=== PATIENT | female | born 1965 | race Caucasian/White ===

== ENCOUNTER 2016-12-13 09:13 | Day surgery (SDC) | payer MEDICARE, BC ==
[~2016-12-13 09:13] MED LIST: Bupivacaine 0.5% 50 ML MDV ONE; Lidocaine 1% with EPINEPHrine 1:100,000 50 ML MDV ONE
[2016-12-13] MEDS ORDERED: Lactated Ringers 1,000 ML IV SCH (09:45)
[2016-12-13] MEDS ORDERED: Propofol 200 MG/20 ML SDV ONE ×2 (11:14→11:48)
[2016-12-13] MEDS ORDERED: Midazolam 1 MG/ML 2 ML SDV ONE (11:14)
[2016-12-13] MEDS ORDERED: fentaNYL 100 MCG/2 ML SDV ONE (11:14)
[2016-12-13] MEDS ORDERED: ceFAZolin 2 GM in Sodium Chloride 0.9% 100 ML IV ONE (11:25)
[2016-12-13] MEDS ORDERED: ceFAZolin 2 GM in Premix Bag 1 BAG IV ONE (11:25)
[2016-12-13] MEDS ORDERED: Lactated Ringers 1,000 ML ONE (12:23)
[2016-12-13] MEDS ORDERED: oxyCODONE 5 MG Tab PO PRN (13:02)
--- NOTE | 2016-12-13 13:16 | CR ---
Portable chest There is a [id number]-[id number] catheter on the left. The tip descends down into the SVC.
[2016-12-13 14:22] VITALS: BP 140/70
--- NOTE | 2016-12-14 08:01 | OR ---
DATE OF PROCEDURE: 12/13/2016 PREOPERATIVE DIAGNOSIS: Metastatic malignant melanoma, needs chemotherapy. POSTOPERATIVE DIAGNOSIS: Metastatic malignant melanoma, needs chemotherapy. PROCEDURE: Left subclavian Port-A-Cath (PowerPort) placement manufactured by [employer]. ANESTHESIA: IV anesthesia with monitored anesthesia care. INDICATIONS: This 50-year-old white female has metastatic malignant melanoma. She needs good IV access for chemotherapy. Request is made for a Port-A-Cath or similar placement. I counseled her for this including risks and alternatives, and she gave her informed consent to proceed. DESCRIPTION OF PROCEDURE: After adequate IV anesthesia was obtained, the patient's anterior chest, shoulders, and neck were prepped and draped in the usual sterile fashion. Time-out was held. Lidocaine 1% with epinephrine in a 50:50 mix with 0.5% Marcaine was infiltrated about the left infraclavicular area. She was placed in Trendelenburg. The left subclavian vein was cannulated with a needle and a wire was passed through the needle into the vein. Fluoroscopically, it was noted to go down into the superior vena cava , right atrium, and inferior vena cava. A transverse infraclavicular incision was then made and a pocket was formed inferior to this incision to accept the reservoir. The reservoir which had previously been attached to the catheter and flushed with heparinized saline using a noncoring needle was then placed in the pocket and the catheter was measured to appropriate length. It was cut to this length. A dilator was then passed over the wire and the dilator was removed. The dilator with introducer were then passed over the wire, and the wire and dilator were removed leaving the introducer in the vein. The catheter was then passed through the introducer into the vein and the introducer was removed leaving the catheter in the vein. All looked well. The reservoir was then anchored with 3-0 silk suture in the previously formed pocket. The incision was irrigated with saline and dried. The subcutaneous tissue was closed in a running stitch of 3-0 Vicryl, 4-0 Vicryl using a subcuticular stitch was placed to approximate the skin. The catheter easily was aspirated obtaining blood and was flushed with heparinized saline. Steri-Strips and a sterile dressing were applied. The patient tolerated the procedure well. Chest x-ray is pending at this time. Gerard Montano MD /[id number] MTDD
== END 2016-12-13 14:15 | disposition home or self-care (01) ==
LOC: JP.SDS 09:13
PROVIDERS: ATTEND Surgery
DX: Z51.11 Encounter for antineoplastic chemotherapy (principal); E11.9 Type 2 diabetes mellitus without complications; E66.9 Obesity, unspecified
CPT/HCPCS: 36561; A9270; C1776; C1788; J0690; J1642; J2250; J2704; J3010; J7120

== ENCOUNTER → 2018-01-30 | Day surgery (SDC) | payer MEDICARE, BC ==
[~2018-01-30] MED LIST changes: +Acetaminophen/HYDROcodone 325-5 MG Tab PO PRN; +Dextrose 5%-Lactated Ringers 1,000 ML IV SCH; +Midazolam 1 MG/ML 2 ML SDV ONE; +Propofol 200 MG/20 ML SDV ONE; +ceFAZolin 2 GM in Premix Bag 1 BAG IV ONE; +fentaNYL 100 MCG/2 ML SDV ONE
[2018-01-30 10:44] VITALS: BP 144/87
--- NOTE | 2018-01-30 11:20 | CR ---
CHEST: Portable CLINICAL HISTORY:Port placement COMPARISON:12/13/2016 FINDINGS: There is a right the subclavian [id number]-[id number] catheter. The tip appears to be in the lower superior vena cava there is no pneumothorax. IMPRESSION: Limited study Right subclavian Ibzqvw-i-Uzmv catheter placement
--- NOTE | 2018-01-31 11:11 | OR ---
DATE OF PROCEDURE: 01/30/2018 PREOPERATIVE DIAGNOSES: Metastatic malignant melanoma, current PowerPort nonfunctional. POSTOPERATIVE DIAGNOSES: Metastatic malignant melanoma, current PowerPort nonfunctional. PROCEDURE: Removal of the existing left subclavian PowerPort and placement of a new right subclavian PowerPort. ANESTHESIA: IV anesthesia with monitored anesthesia care. INDICATION: This 52-year-old white female is here to replace her PowerPort. She has metastatic malignant melanoma. Her existing PowerPort is nonfunctional. It is in the left subclavian area. I counseled her for removal of this existing PowerPort and placement of a new one. She gave her informed consent to proceed. DESCRIPTION OF PROCEDURE: After adequate IV anesthesia was obtained, the patient's upper chest, shoulders, and neck were prepped and draped in the usual sterile fashion. Time-out was held. Lidocaine 1% with epinephrine in a 50:50 mix with 0.5% Marcaine was infiltrated about the left infraclavicular area. A transverse incision was made through her existing left infraclavicular scar. This was dissected free down to the existing PowerPort. This was removed. She was placed in steep Trendelenburg. The left subclavian vein was attempted to be cannulated. We could not do this because of lot of scar tissue present. We then abandoned this side and went to the right side. Lidocaine 1% with epinephrine in a 50:50 mix with 0.5% Marcaine was infiltrated about this area. We then cannulated the left subclavian vein and passed a wire through the needle and into the vein, and fluoroscopically noted to go down into the superior vena cava and right ventricle. There was some ectopy, so we pulled the wire back. A transverse incision was then made at this site. We placed a dilator over the wire, and the dilator was removed. The dilator with introducer was then passed over the wire. The wire and dilator were removed leaving the introducer in the vein. The previously-measured PowerPort device, which had also been filled with heparinized saline using a noncoring needle, was then obtained, it was passed through the introducer into the vein and the introducer was removed. The catheter appeared to be nicely placed in the vein. The reservoir of the device was then anchored to the underlying fascia with 2-0 silk suture. We accessed the device, it easily aspirated, and then we flushed with heparinized saline. We used a noncoring needle. Both incisions were irrigated and dried. The subcutaneous tissue of both incisions was approximated with 3-0 Vicryl suture and 4-0 Vicryl using a subcuticular stitch was placed to approximate the skin. Steri-Strips and a sterile dressing were applied. The patient tolerated the procedure well and was brought to the recovery room in a good condition. Chest x-ray is being taken. Gerard Montano MD /[id number]
== END ==
LOC: JP.SDS 07:00
PROVIDERS: ATTEND Surgery
DX: T82.598A Other mechanical complication of other cardiac and vascular devices and implants, initial encounter (principal); C43.9 Malignant melanoma of skin, unspecified; C79.9 Secondary malignant neoplasm of unspecified site; E66.01 Morbid (severe) obesity due to excess calories
CPT/HCPCS: 36561; 36590; A9270; C1788; J0690; J1642; J2250; J2704; J3010; J7042

== ENCOUNTER 2021-05-09 15:24 | Inpatient (IN) | payer MEDICARE ==
--- NOTE | 2021-05-09 16:38 | EDM.PDOC ---
ED HPI GENERAL MEDICAL PROBLEM - General Chief Complaint: Lower Extremity Injury/Pain Stated Complaint: INFECTION IN LEG Time Seen by Provider: 05/09/21 16:25 Source of Information: Reports: Patient, RN History Limitations: Reports: No Limitations - History of Present Illness INITIAL COMMENTS - FREE TEXT/NARRATIVE: Patient woke up with a very large "cellulitis". Patient states she has had this multiple times before and has been admitted multiple times for cellulitis. Redness starts in hip goes all the way to ankle and foot on right side. Redness is not seen on lateral aspect from mid thigh to mid calf otherwise entire leg groin and hip are all red. Patient is in pain. Area is warm, no open areas.according to patient she has had lymphedema surgery in the past. No s pecific site is noted for the start of the cellulitis or skin reaction. Onset: Today, Sudden Duration: Getting Worse Location: Reports: Lower Extremity, Right (Hip to ankle) Quality: Reports: Burning Severity: Severe Improves with: Reports: None Worsens with: Reports: None Context: Reports: Other Associated Symptoms: Reports: No Other Symptoms Treatments CHART READER: Reports: Other (see below) (None) right leg Pain Score (Numeric/FACES): 8 - Related Data Allergies Allergy/AdvReac Type Severity Reaction Status Date / Time No Known Allergies Allergy Verified 05/09/21 15:40 Home Meds: Home Meds Levothyroxine Sodium 200 mcg PO DAILY 06/15/14 [History] Pembrolizumab [Keytruda] 1 injection IV ASDIRECTED 12/09/16 [History] Prochlorperazine Maleate [Compazine] 10 mg PO Q6H PRN 12/09/16 [History] Triamcinolone Acetonide [Kenalog 0.1% Crm] 1 applic TOP ASDIRECTED 01/09/18 [History] QUEtiapine Fumarate [Seroquel] 1 - 2 mg PO BEDTIME 12/11/20 [History] hydrOXYzine HCL [hydrOXYzine] 25 mg PO DAILY 12/11/20 [History] Insulin Lispro [Humalog] See Protocol SUBCUT QIDACANDBED 30 Days #1 pen 12/16/20 [Rx] Insulin NPH Human Isophane [Humulin N] 33 unit SQ DAILY 30 Days #1 vial 12/16/20 [Rx] Insulin NPH Human Isophane [Humulin N] 35 unit SQ BEDTIME 30 Days #1 vial 12/16/20 [Rx] Albuterol [Proventil Neb Soln] 3 ml INH Q4H PRN 12/24/20 [History] Citalopram [Citalopram HBr] 20 mg PO DAILY 05/09/21 [History] Zolpidem Tartrate 10 mg PO BEDTIME 05/09/21 [History] buPROPion [buPROPion XL] 150 mg PO DAILY 05/09/21 [History] Past Medical History HEENT History: Reports: Impaired Vision Other HEENT History: wears reading glasses Cardiovascular History: Reports: High Cholesterol Respiratory History: Reports: Pneumonia, Recurrent, Other (See Below) Other Respiratory History: sarcoidosis in 2002. 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: Musculoskeletal History: Reports: Arthritis Neurological History: Reports: Migraines Psychiatric History: Reports: Anxiety, Depression Other Psychiatric History: claustrophobia Endocrine/Metabolic History: Reports: Diabetes, Type II, Hypothyroidism, Obesity/BMI 30+ Other Endocrine/Metabolic History: thyroid cancer Hematologic History: Reports: Blood Transfusion(s) Oncologic (Cancer) History: Reports: Malignant Melanoma, Thyroid, Other (See Below) Other Oncologic History: skin cancer-melanoma Dermatologic History: Reports: Cellulitis, Melanoma, Other (See Below) Other Dermatologic History: right lymph glands removed, lymphedema right leg - Infectious Disease History Infectious Disease History: Reports: Chicken Pox - Past Surgical History HEENT Surgical History: Reports: Tonsillectomy, Other (See Below) Other HEENT Surgeries/Procedures: "nose surgery i dont remember" Cardiovascular Surgical History: Reports: None Respiratory Surgical History: Reports: None GI Surgical History: Reports: Colonoscopy Female Surgical History: Reports: Breast Biopsy, Section, Tubal Ligation Endocrine Surgical History: Reports: None Neurological Surgical History: Reports: None Musculoskeletal Surgical History: Reports: None Oncologic Surgical History: Reports: Biopsy of Breast Dermatological Surgical History: Reports: Skin Biopsy Social & Family History - Family History Family Medical History: No Pertinent Family History - Tobacco Use Tobacco Use Status *Q: Never Tobacco User - Caffeine Use Caffeine Use: Reports: Coffee, Soda - Recreational Drug Use Recreational Drug Use: No - Living Situation & Occupation Living situation: Reports: Single (lives with Son Juan and his family. has two adult Sons, 6 Grandchildren and multi dogs and cats) Occupation: Disabled Review of Systems - Review of Systems Review Of Systems: See Below Constitutional: Reports: No Symptoms Eyes: Reports: Drainage (Yellow mattery drainage right eye) Ears: Reports: No Symptoms Nose: Reports: No Symptoms Mouth/Throat: Reports: No Symptoms Respiratory: Reports: No Symptoms Cardiovascular: Reports: No Symptoms GI/Abdominal: Reports: No Symptoms Genitourinary: Reports: No Symptoms Musculoskeletal: Reports: Leg Pain (Right leg) Skin: Reports: Erythema Neurological: Reports: No Symptoms Psychiatric: Reports: No Symptoms ED EXAM, GENERAL - Physical Exam Exam: See Below Exam Limited By: No Limitations General Appearance: Alert, Moderate Distress Respiratory/Chest: No Respiratory Distress, Lungs Clear, Normal Breath Sounds Cardiovascular: Normal Peripheral Pulses, Regular Rate, Rhythm Extremities: Normal Range of Motion, Pedal Edema, Leg Pain, Increased Warmth, Redness. No: No Pedal Edema Neurological: Alert, Oriented, CN II-XII Intact Psychiatric: Normal Affect Skin Exam: Warm, Erythema, Increased Warmth, Rash (Cellulitis versus allergic reaction right hip to ankle including groin and part of buttock) Course - Vital Signs Last Recorded V/S: Last Vital Signs Temp 36.1 C 05/10/21 07:00 Pulse 95 05/10/21 07:00 Resp 18 05/10/21 07:00 BP 104/35 L 05/10/21 07:00 Pulse Ox 90 L 05/10/21 07:00 - Orders/Labs/Meds Orders: Active Orders 24 hr Category Date Time Status Patient Status [ADT] Routine ADT 05/09/21 19:11 Active Ambulate [RC] QID Care 05/09/21 19:11 Active Communication Order [RC] STAT Care 05/09/21 19:11 Active Diabetes Education [RC] Click to Edit Care 05/09/21 19:11 Active Height and Weight [RC] 0500 Care 05/09/21 19:11 Active Intake and Output [RC] QSHIFT Care 05/09/21 19:11 Active Notify Provider Vital Signs [RC] ASDIRECTED Care 05/09/21 19:11 Active Notify Provider [RC] PRN Care 05/09/21 19:11 Active Oxygen Therapy [RC] PRN Care 05/09/21 19:11 Active Peripheral IV Care [RC] Q12H Care 05/09/21 19:11 Active RT Aerosol Therapy [RC] ASDIRECTED Care 05/09/21 19:11 Active Up With Assistance [RC] ASDIRECTED Care 05/09/21 19:11 Active Up to Chair [RC] QID Care 05/09/21 19:11 Active VTE/DVT Education [RC] Per Unit Routine Care 05/09/21 19:11 Active Vital Signs [RC] Q4H Care 05/09/21 19:11 Active Consistent Carbohydrate Diet [DIET] Diet 05/09/21 Dinner Active CULTURE BLOOD [BC] Urgent Lab 05/09/21 16:45 Received CULTURE BLOOD [BC] Urgent Lab 05/09/21 16:50 Received GLUCOSE POC LAB TO COLLECT JPM [POC] QIDACANDBED Lab 05/10/21 11:30 Ordered GLUCOSE POC LAB TO COLLECT JPM [POC] QIDACANDBED Lab 05/10/21 16:30 Ordered GLUCOSE POC LAB TO COLLECT JPM [POC] QIDACANDBED Lab 05/10/21 21:00 Ordered GLUCOSE POC LAB TO COLLECT JPM [POC] QIDACANDBED Lab 05/11/21 07:30 Ordered GLUCOSE POC LAB TO COLLECT JPM [POC] QIDACANDBED Lab 05/11/21 11:30 Ordered GLUCOSE POC LAB TO COLLECT JPM [POC] QIDACANDBED Lab 05/11/21 16:30 Ordered GLUCOSE POC LAB TO COLLECT JPM [POC] QIDACANDBED Lab 05/11/21 21:00 Ordered GLUCOSE POC LAB TO COLLECT JPM [POC] QIDACANDBED Lab 05/12/21 07:30 Ordered GLUCOSE POC LAB TO COLLECT JPM [POC] QIDACANDBED Lab 05/12/21 11:30 Ordered GLUCOSE POC LAB TO COLLECT JPM [POC] QIDACANDBED Lab 05/12/21 16:30 Ordered GLUCOSE POC LAB TO COLLECT JPM [POC] QIDACANDBED Lab 05/12/21 21:00 Ordered GLUCOSE POC LAB TO COLLECT JPM [POC] QIDACANDBED Lab 05/13/21 07:30 Ordered GLUCOSE POC LAB TO COLLECT JPM [POC] QIDACANDBED Lab 05/13/21 11:30 Ordered GLUCOSE POC LAB TO COLLECT JPM [POC] QIDACANDBED Lab 05/13/21 16:30 Ordered GLUCOSE POC LAB TO COLLECT JPM [POC] QIDACANDBED Lab 05/13/21 21:00 Ordered GLUCOSE POC LAB TO COLLECT JPM [POC] QIDACANDBED Lab 05/14/21 07:30 Ordered GLUCOSE POC LAB TO COLLECT JPM [POC] QIDACANDBED Lab 05/14/21 11:30 Ordered GLUCOSE POC LAB TO COLLECT JPM [POC] QIDACANDBED Lab 05/14/21 16:30 Ordered GLUCOSE POC LAB TO COLLECT JPM [POC] QIDACANDBED Lab 05/14/21 21:00 Ordered GLUCOSE POC LAB TO COLLECT JPM [POC] QIDACANDBED Lab 05/15/21 07:30 Ordered GLUCOSE POC LAB TO COLLECT JPM [POC] QIDACANDBED Lab 05/15/21 11:30 Ordered GLUCOSE POC LAB TO COLLECT JPM [POC] QIDACANDBED Lab 05/15/21 16:30 Ordered Acetaminophen [TylenoL] Med 05/09/21 19:11 Active 650 mg PO Q4H PRN Dextrose 50% in Water Med 05/09/21 19:11 Active 50 ml IV ONETIME PRN Dextrose [Glutose 15] Med 05/09/21 19:11 Active 15 gm PO ONETIME PRN Enoxaparin [Lovenox] Med 05/09/21 21:00 Active 40 mg SUBCUT BEDTIME Insulin Lispro [HumaLOG] Med 05/09/21 20:00 Active See Protocol SUBCUT QIDACANDBED Insulin NPH Human Isophane [HumuLIN N] Med 05/10/21 09:00 Active 33 unit SQ DAILY Insulin NPH Human Isophane [HumuLIN N] Med 05/09/21 21:00 Active 35 unit SQ BEDTIME Levothyroxine [Synthroid] Med 05/10/21 07:30 Active 200 mcg PO DAILY@0730 Ondansetron [Zofran] Med 05/09/21 19:11 Active 4 mg IV Q4H PRN QUEtiapine [SEROqueL] Med 05/09/21 21:00 Active 25 - 50 mg PO BEDTIME Sodium Chloride 0.9% [Saline Flush] Med 05/09/21 19:11 Active 10 ml FLUSH ASDIRECTED PRN hydrOXYzine HCL [Atarax] Med 05/10/21 09:00 Active 25 mg PO DAILY polyethylene glycoL 3350 [MiraLAX] Med 05/09/21 19:11 Active 17 gm PO DAILY PRN Blood Culture x2 Reflex Set [OM.PC] Urgent Oth 05/09/21 16:59 Ordered Peripheral IV Insertion Adult [OM.PC] Routine Oth 05/09/21 19:11 Ordered Resuscitation Status Routine Resus Stat 05/09/21 18:24 Ordered Medication Orders Acetaminophen (Acetaminophen 325 Mg Tab) 650 mg PO Q4H PRN PRN Reason: Pain (Mild 1-3)/fever Last Admin: 05/09/21 20:56 Dose: 650 mg Documented by: DOMINICK Albuterol (Albuterol 0.083% 2.5 Mg/3 Ml Neb Soln) 2.5 mg INH Q4H PRN PRN Reason: Shortness of Breath Last Admin: 05/10/21 09:23 Dose: 2.5 mg Documented by: VERONICA Dextrose (Glucose Gel 15 Gm In 37.5 Gm Tube) 15 gm PO ONETIME PRN PRN Reason: Hypoglycemia Dextrose/Water (50% Dextrose In Water 50 Ml Syringe) 50 ml IV ONETIME PRN PRN Reason: Hypoglycemia Enoxaparin Sodium (Enoxaparin 40 Mg/0.4 Ml Syringe) 40 mg SUBCUT BEDTIME FERNANDO Last Admin: 05/09/21 20:57 Dose: 40 mg Documented by: DOMINICK Hydroxyzine HCl (Hydroxyzine Hcl 25 Mg Tab) 25 mg PO DAILY FERNANDO Last Admin: 05/10/21 09:00 Dose: 25 mg Documented by: VERONICA Piperacillin/Tazobactam/ (Dextrose 3.375 gm/ Premix) 50 mls @ 100 mls/hr IV Q6H FERNANDO Vancomycin HCl 2 gm/ Sodium (Chloride) 500 mls @ 250 mls/hr IV Q12H [facility] Last Admin: 05/10/21 08:42 Dose: 250 mls/hr Documented by: VERONICA Insulin Human Lispro (Insulin Lispro 100 Unit/Ml 3 Ml Kwikpen) 0 unit SUBCUT QIDACANDBED [facility]; Protocol Last Admin: 05/10/21 09:18 Dose: 2 units Documented by: VERONICA Cosigned by: SHEA Admin: 05/09/21 21:24 Dose: 4 units Documented by: DOMINICK Cosigned by: TANNER Insulin Human NPH (Insulin Isophane Nph, Human 100 Units/Ml 3 Ml Vial) 33 unit SQ DAILY [facility] Last Admin: 05/10/21 09:18 Dose: 33 unit Documented by: VERONICA Cosigned by: [email or web address] Insulin Human NPH (Insulin Isophane Nph, Human 100 Units/Ml 3 Ml Vial) 35 unit SQ BEDTIME [facility] Last Admin: 05/09/21 21:23 Dose: 35 unit Documented by: DOMINICK Cosigned by: TANNER Levothyroxine Sodium (Levothyroxine 100 Mcg Tab) 200 mcg PO DAILY@0730 [facility] Last Admin: 05/10/21 09:00 Dose: 200 mcg Documented by: VERONICA Ondansetron HCl (Ondansetron 4 Mg/2 Ml Sdv) 4 mg IV Q4H PRN PRN Reason: Nausea/Vomiting Oxycodone HCl (Oxycodone 5 Mg Tab) 5 mg PO Q4H PRN PRN Reason: Pain Last Admin: 05/10/21 10:17 Dose: 5 mg Documented by: Admin: 05/09/21 20:56 Dose: 5 mg Documented by: DOMINICK Polyethylene Glycol (Polyethylene Glycol 3350 Powder 17 Gm Packet) 17 gm PO DAILY PRN PRN Reason: Constipation Potassium Chloride (Potassium Chloride 20 Meq Tab.Er) 40 meq PO ONETIME ONE Stop: 05/10/21 17:01 Quetiapine Fumarate (Quetiapine 25 Mg Tab) 25 - 50 mg PO BEDTIME [facility] Last Admin: 05/09/21 20:56 Dose: 50 mg Documented by: DOMINICK Sodium Chloride (Sodium Chloride 0.9% 10 Ml Syringe) 10 ml FLUSH ASDIRECTED PRN PRN Reason: Keep Vein Open Zolpidem Tartrate (Zolpidem 5 Mg Tab) 10 mg PO BEDTIME [facility] Last Admin: 05/09/21 20:56 Dose: 10 mg Documented by: DOMINICK Labs: Laboratory Tests 05/09/21 05/09/21 05/09/21 Range/Units 16:45 16:45 16:45 WBC 17.8 H (4.5-11.0) K/uL RBC 5.06 (3.30-5.50) M/uL Hgb 12.5 (12.0-15.0) g/dL Hct 40.5 (36.0-48.0) % MCV 80 (80-98) fL MCH 25 L (27-31) pg MCHC 31 L (32-36) % Plt Count 142 L (150-400) K/uL Neut % (Auto) 88.8 H (36-66) % Lymph % (Auto) 5.7 L (24-44) % Boyle % (Auto) 5.1 (2-6) % Eos % (Auto) 0.2 L (2-4) % Baso % (Auto) 0.2 (0-1) % Sodium 134 L (140-148) mmol/L Potassium 4.4 (3.6-5.2) mmol/L Chloride 98 L (100-108) mmol/L Carbon Dioxide 32 (21-32) mmol/L Anion Gap 8.4 (5.0-14.0) mmol/L BUN 24 H D (7-18) mg/dL Creatinine 1.0 (0.6-1.0) mg/dL Est Cr Clr Drug Dosing 58.81 mL/min Estimated GFR (MDRD) 57 L (>60) Glucose 170 H (74-106) mg/dL Lactic Acid 1.5 (0.4-2.0) mmol/L Calcium 9.1 (8.5-10.1) mg/dL Elevated white count at 17.8. Blood cultures drawn. Meds: Medications Generic Name Dose Route Start Last Admin Trade Name Freq PRN Reason Stop Dose Admin Acetaminophen 650 mg 05/09/21 19:11 05/09/21 20:56 Acetaminophen 325 Mg Tab PO 650 mg Q4H PRN Administration Pain (Mild 1-3)/fever Albuterol 2.5 mg 05/09/21 20:43 05/10/21 09:23 Albuterol 0.083% 2.5 Mg/3 Ml Neb Soln INH 2.5 mg Q4H PRN Administration Shortness of Breath Dextrose 15 gm 05/09/21 19:11 Glucose Gel 15 Gm In 37.5 Gm Tube PO ONETIME PRN Hypoglycemia Dextrose/Water 50 ml 05/09/21 19:11 50% Dextrose In Water 50 Ml Syringe IV ONETIME PRN Hypoglycemia Enoxaparin Sodium 40 mg 05/09/21 21:00 05/09/21 20:57 Enoxaparin 40 Mg/0.4 Ml Syringe SUBCUT 40 mg BEDTIME FERNANDO Administration Hydroxyzine HCl 25 mg 05/10/21 09:00 05/10/21 09:00 Hydroxyzine Hcl 25 Mg Tab PO 25 mg DAILY FERNANDO Administration Piperacillin/Tazobactam/ 50 mls @ 100 mls/hr 05/10/21 12:00 Dextrose 3.375 gm/ Premix IV Q6H FERNANDO Vancomycin HCl 2 gm/ Sodium 500 mls @ 250 mls/hr 05/10/21 08:00 05/10/21 08:42 Chloride IV 250 mls/hr Q12H FERNANDO Administration Insulin Human Lispro 0 unit 05/09/21 20:00 05/10/21 09:18 Insulin Lispro 100 Unit/Ml 3 Ml Kwikpen SUBCUT 2 units QIDACANDBED FERNANDO Administration Protocol Insulin Human NPH 33 unit 05/10/21 09:00 05/10/21 09:18 Insulin Isophane Nph, Human 100 Units/Ml 3 Ml Vial SQ 33 unit DAILY FERNANDO Administration Insulin Human NPH 35 unit 05/09/21 21:00 05/09/21 21:23 Insulin Isophane Nph, Human 100 Units/Ml 3 Ml Vial SQ 35 unit BEDTIME FERNANDO Administration Levothyroxine Sodium 200 mcg 05/10/21 07:30 05/10/21 09:00 Levothyroxine 100 Mcg Tab PO 200 mcg DAILY@0730 FERNANDO Administration Ondansetron HCl 4 mg 05/09/21 19:11 Ondansetron 4 Mg/2 Ml Sdv IV Q4H PRN Nausea/Vomiting Oxycodone HCl 5 mg 05/09/21 20:09 05/10/21 10:17 Oxycodone 5 Mg Tab PO 5 mg Q4H PRN Administration Pain Polyethylene Glycol 17 gm 05/09/21 19:11 Polyethylene Glycol 3350 Powder 17 Gm Packet PO DAILY PRN Constipation Potassium Chloride 40 meq 05/10/21 17:00 Potassium Chloride 20 Meq Tab.Er PO 05/10/21 17:01 ONETIME ONE Quetiapine Fumarate 25 - 50 mg 05/09/21 21:00 05/09/21 20:56 Quetiapine 25 Mg Tab PO 50 mg BEDTIME FERNANDO Administration Sodium Chloride 10 ml 05/09/21 19:11 Sodium Chloride 0.9% 10 Ml Syringe FLUSH ASDIRECTED PRN Keep Vein Open Zolpidem Tartrate 10 mg 05/09/21 21:00 05/09/21 20:56 Zolpidem 5 Mg Tab PO 10 mg BEDTIME FERNANDO Administration Discontinued Medications Generic Name Dose Route Start Last Admin Trade Name Freq PRN Reason Stop Dose Admin Albuterol 2.5 mg 05/09/21 19:11 05/09/21 20:15 Albuterol 0.083% 2.5 Mg/3 Ml Neb Soln INH 2.5 mg Q4H FERNANDO Administration Piperacillin Sod/Tazobactam 50 mls @ 100 mls/hr 05/09/21 18:30 05/10/21 05:54 Sod 3.375 gm/ Sodium Chloride IV 100 mls/hr Q6H FERNANDO Administration Vancomycin HCl 2 gm/ Sodium 500 mls @ 250 mls/hr 05/09/21 19:00 05/09/21 19:34 Chloride IV 250 mls/hr Q12H FERNANDO Administration Sodium Chloride 1,000 mls @ 125 mls/hr 05/09/21 19:11 05/10/21 06:38 Normal Saline IV 125 mls/hr ASDIRECTED FERNANDO Administration Potassium Chloride 40 meq 05/10/21 08:30 05/10/21 09:54 Potassium Chloride 20 Meq Tab.Er PO 05/10/21 08:31 40 meq ONETIME ONE Administration Sodium Chloride 10 ml 05/09/21 17:44 Sodium Chloride 0.9% 10 Ml Syringe FLUSH ASDIRECTED PRN Keep Vein Open Vancomycin HCl 1 gm 05/09/21 19:00 Vancomycin 1 Gm Sdv IV 05/10/21 08:35 .PHARMACY TO DOSE FERNANDO - Re-Assessments/Exams Free Text/Narrative Re-Assessment/Exam: 05/09/21 17:47 Reviewed labs with patient. Blood cultures were drawn. Consulted internal medicine for admit for right leg cellulitis. Patient has strong history of sepsis and cellulitis. Departure - Departure Time of Disposition: 18:56 Disposition: Admitted As Inpatient 65 Condition: Fair Clinical Impression: Cellulitis - Discharge Information Sepsis Event Note (ED) - Evaluation Sepsis Screening Result: No Definite Risk - My Orders Last 24 Hours: My Active Orders 05/09/21 16:45 CULTURE BLOOD [BC] Urgent 05/09/21 16:50 CULTURE BLOOD [BC] Urgent 05/09/21 16:59 Blood Culture x2 Reflex Set [OM.PC] Urgent - Assessment/Plan Last 24 Hours: My Active Orders 05/09/21 16:45 CULTURE BLOOD [BC] Urgent 05/09/21 16:50 CULTURE BLOOD [BC] Urgent 05/09/21 16:59 Blood Culture x2 Reflex Set [OM.PC] Urgent
[2021-05-09] MEDS ORDERED: Sodium Chloride 0.9% 10 ML Syringe FLUSH PRN ×2 (17:44→19:11)
--- NOTE | 2021-05-09 18:28 | PCM.HP.2 ---
H&P History of Present Illness - General Date of Service: 05/09/21 Admit Problem/Dx: Admission Diagnosis/Problem Admission Diagnosis/Problem Cellulitis Source of Information: Patient, Old Records, Provider, RN Notes Reviewed History Limitations: Reports: No Limitations - History of Present Illness Initial Comments - Free Text/Narative: Ms. Carrington is a 55-year-old woman who was admitted through the emergency department with weakness and pain in her right leg secondary to cellulitis. She has a known history of lymphedema of the right leg and has had recurrent episodes of cellulitis involving the right leg. The most recent of which was approximately 1 month ago. She is also actively receiving chemotherapy for melanoma. She does have underlying diabetes. White blood cell count is elevated, she denies significant temperature elevation. She noted abrupt onset of erythema of almost her entire right leg this morning. Skin is very tender to palpation, there are no open areas. right leg Pain Score (Numeric/FACES): 8 - Related Data Allergies/Adverse Reactions: Allergies Allergy/AdvReac Type Severity Reaction Status Date / Time No Known Allergies Allergy Verified 05/09/21 15:40 Home Medications: Home Meds Levothyroxine Sodium 200 mcg PO DAILY 06/15/14 [History] Pembrolizumab [Keytruda] 1 injection IV ASDIRECTED 12/09/16 [History] Prochlorperazine Maleate [Compazine] 10 mg PO Q6H PRN 12/09/16 [History] Triamcinolone Acetonide [Kenalog 0.1% Crm] 1 applic TOP ASDIRECTED 01/09/18 [History] QUEtiapine Fumarate [Seroquel] 1 - 2 mg PO BEDTIME 12/11/20 [History] hydrOXYzine HCL [hydrOXYzine] 25 mg PO DAILY 12/11/20 [History] Insulin Lispro [Humalog] See Protocol SUBCUT QIDACANDBED 30 Days #1 pen 12/16/20 [Rx] Insulin NPH Human Isophane [Humulin N] 33 unit SQ DAILY 30 Days #1 vial 12/16/20 [Rx] Insulin NPH Human Isophane [Humulin N] 35 unit SQ BEDTIME 30 Days #1 vial 12/16/20 [Rx] Albuterol [Proventil Neb Soln] 3 ml INH Q4H 12/24/20 [History] Past Medical History HEENT History: Reports: Impaired Vision Other HEENT History: wears reading glasses Cardiovascular History: Reports: High Cholesterol Respiratory History: Reports: Pneumonia, Recurrent, Other (See Below) Other Respiratory History: sarcoidosis in 2002. 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: Musculoskeletal History: Reports: Arthritis Neurological History: Reports: Migraines Psychiatric History: Reports: Anxiety, Depression Other Psychiatric History: claustrophobia Endocrine/Metabolic History: Reports: Diabetes, Type II, Hypothyroidism, Obesit y/BMI 30+ Other Endocrine/Metabolic History: thyroid cancer Hematologic History: Reports: Blood Transfusion(s) Oncologic (Cancer) History: Reports: Malignant Melanoma, Thyroid, Other (See Below) Other Oncologic History: skin cancer-melanoma Dermatologic History: Reports: Cellulitis, Melanoma, Other (See Below) Other Dermatologic History: right lymph glands removed, lymphedema right leg - Infectious Disease History Infectious Disease History: Reports: Chicken Pox - Past Surgical History HEENT Surgical History: Reports: Tonsillectomy, Other (See Below) Other HEENT Surgeries/Procedures: "nose surgery i dont remember" Cardiovascular Surgical History: Reports: None Respiratory Surgical History: Reports: None GI Surgical History: Reports: Colonoscopy Female Surgical History: Reports: Breast Biopsy, Section, Tubal Ligation Endocrine Surgical History: Reports: None Neurological Surgical History: Reports: None Musculoskeletal Surgical History: Reports: None Oncologic Surgical History: Reports: Biopsy of Breast Dermatological Surgical History: Reports: Skin Biopsy Social & Family History - Family History Family Medical History: No Pertinent Family History - Tobacco Use Tobacco Use Status *Q: Never Tobacco User - Caffeine Use Caffeine Use: Reports: Coffee, Soda - Recreational Drug Use Recreational Drug Use: No - Living Situation & Occupation Living situation: Reports: Single (lives with Son Juan and his family. has two adult Sons, 6 Grandchildren and multi dogs and cats) Occupation: Disabled H&P Review of Systems - Review of Systems: Review Of Systems: See Below General: Reports: Malaise, Weakness, Fatigue. Denies: Fever, Chills HEENT: Reports: No Symptoms Pulmonary: Reports: No Symptoms Cardiovascular: Reports: No Symptoms Gastrointestinal: Reports: No Symptoms Genitourinary: Reports: No Symptoms Musculoskeletal: Reports: No Symptoms Skin: Reports: Other (Erythema and pain involving the right leg) Psychiatric: Reports: No Symptoms Neurological: Reports: No Symptoms Hematologic/Lymphatic: Reports: No Symptoms Immunologic: Reports: No Symptoms Exam - Exam Exam: See Below - Vital Signs Vital Signs: Last Vital Signs Temp 97.8 F 05/09/21 15:48 Pulse 96 05/09/21 18:12 Resp 20 05/09/21 15:48 BP 143/64 H 05/09/21 18:12 Pulse Ox 93 L 05/09/21 15:48 Weight: 310 lb - Exam Quality Assessment: DVT Prophylaxis General: Alert, Oriented, Cooperative, Mild Distress HEENT: Conjunctiva Clear, Hearing Intact, Mucosa Moist & Venturia, Normal Nasal Septum, Posterior Pharynx Clear, Pupils Equal Neck: Supple, Trachea Midline, +2 Carotid Pulse wo Bruit Lungs: Clear to Auscultation, Normal Respiratory Effort Cardiovascular: Regular Rate, Regular Rhythm, Normal S1, Normal S2 GI/Abdominal Exam: Soft, Non-Tender, No Organomegaly, No Distention Back Exam: Normal Inspection, Full Range of Motion Extremities: Pedal Edema, Increased Warmth, Redness Skin: Other (Erythema with increased warmth and hypersensitivity, most of the right leg) Neurological: Cranial Nerves Intact, Strength Equal Bilateral, Normal Speech, Normal Tone, Sensation Intact. No: Focal Deficit Neuro Extensive - Mental Status: Alert, Oriented x3, Normal Mood/Affect, Normal Cognition, Memory Intact - Patient Data Lab Results Last 24 hrs: Laboratory Results - last 24 hr 05/09/21 05/09/21 Range/Units 16:45 16:45 WBC 17.8 H (4.5-11.0) K/uL RBC 5.06 (3.30-5.50) M/uL Hgb 12.5 (12.0-15.0) g/dL Hct 40.5 (36.0-48.0) % MCV 80 (80-98) fL MCH 25 L (27-31) pg MCHC 31 L (32-36) % Plt Count 142 L (150-400) K/uL Neut % (Auto) 88.8 H (36-66) % Lymph % (Auto) 5.7 L (24-44) % [place] % (Auto) 5.1 (2-6) % Eos % (Auto) 0.2 L (2-4) % Baso % (Auto) 0.2 (0-1) % Sodium 134 L (140-148) mmol/L Potassium 4.4 (3.6-5.2) mmol/L Chloride 98 L (100-108) mmol/L Carbon Dioxide 32 (21-32) mmol/L Anion Gap 8.4 (5.0-14.0) mmol/L BUN 24 H D (7-18) mg/dL Creatinine 1.0 (0.6-1.0) mg/dL Est Cr Clr Drug Dosing 58.81 mL/min Estimated GFR (MDRD) 57 L (>60) Glucose 170 H (74-106) mg/dL Calcium 9.1 (8.5-10.1) mg/dL Result Diagrams: 05/09/21 16:45 05/09/21 16:45 Sepsis Event Note - Evaluation Sepsis Screening Result: No Definite Risk - Focused Exam Vital Signs: Vital Signs Temp Pulse Resp BP Pulse Ox 05/09/21 18:12 96 143/64 H 05/09/21 17:11 96 123/59 L 05/09/21 15:48 97.8 F 111 H 20 141/62 H 93 L *Q Meaningful Use (ADM) - VTE Risk Assess *Q Each Risk Factor Represents 1 Point: Age 41 - 59 years, Swollen Legs, Current, Obesity ( BMI > 25 kg/m2), Sepsis Total Score 1 Point Risk Factors: 4 Each Risk Factor Represents 2 Points: Malignancy (present or previous) Total Score 2 Point Risk Factors: 2 Each Risk Factor Represents 3 Points: None Total Score 3 Point Risk Factors: 0 Each Risk Factor Represents 5 Points: None Total Score 5 Point Risk Factors: 0 Venous Thromboembolism Risk Factor Score *Q: 6 Problem List Initiated/Reviewed/Updated: Yes Orders Last 24hrs: Active Orders 24 hr Category Date Time Status Patient Status Manage Transfer [TRANSFER] Routine ADT 05/09/21 18:21 Active Peripheral IV Care [RC] . DIRECTED Care 05/09/21 17:44 Active CULTURE BLOOD [BC] Urgent Lab 05/09/21 16:45 Received CULTURE BLOOD [BC] Urgent Lab 05/09/21 16:50 Received LACTIC ACID [CHEM] Stat Lab 05/09/21 16:45 Received Piperacillin/Tazobactam [Zosyn] 3.375 gm Med 05/09/21 18:30 Active Sodium Chloride 0.9% [Normal Saline] 50 ml IV Q6H Sodium Chloride 0.9% [Saline Flush] Med 05/09/21 17:44 Active 10 ml FLUSH ASDIRECTED PRN Vancomycin Med 05/09/21 19:00 Ordered 1 gm IV .PHARMACY TO DOSE Blood Culture x2 Reflex Set [OM.PC] Urgent Oth 05/09/21 16:59 Ordered Peripheral IV Insertion Adult [OM.PC] Routine Oth 05/09/21 17:44 Ordered Resuscitation Status Routine Resus Stat 05/09/21 18:24 Ordered Medication Orders Piperacillin Sod/Tazobactam (Sod 3.375 gm/ Sodium Chloride) 50 mls @ 100 mls/hr IV Q6H FERNANDO Sodium Chloride (Sodium Chloride 0.9% 10 Ml Syringe) 10 ml FLUSH ASDIRECTED PRN PRN Reason: Keep Vein Open Vancomycin HCl (Vancomycin 1 Gm Sdv) 1 gm IV .PHARMACY TO DOSE FERNANDO Assessment/Plan Comment:: ASSESSMENT AND PLAN EXTENSIVE CELLULITIS AND EARLY SEPSIS-abrupt onset of erythema and tenderness involving most of her right leg this morning. Prior history of hospitalization for cellulitis. Currently receiving treatment for multiple myeloma. Evidence of associated early sepsis. -Blood cultures pending -IV fluids, despite early sepsis will limit fluids because of history of fluid overload -IV vancomycin and Zosyn, pending culture results TYPE 2 DIABETES MELLITUS -4 times daily glucometers -Continue outpatient NPH insulin 30 units subcu twice daily -Moderate dose sliding scale Humalog HISTORY OF MALIGNANT MELANOMA-currently receiving treatment MAINTENANCE ISSUES -DVT prophylaxis; Lovenox 40 mg subcu daily -GI prophylaxis; not indicated -Rao catheter; -Nutrition; consistent carbohydrate diet -Nicotine dependence; not required CODE STATUS-FULL CODE ADMISSION STATUS-patient will be admitted to inpatient status, expect at least a 2 night hospital stay for evaluation and management of problems as outlined above. At the time of this admission I do not reasonably expected evaluation and management of this problem will require more than a 96 hour hospital stay. DISPOSITION-anticipate discharge to home after the hospital stay. - Mortality Measure Prognosis:: Good
[2021-05-09] MEDS ORDERED: Vancomycin 1 GM SDV IV SCH (19:00)
[2021-05-09] MEDS ORDERED: Vancomycin 2 GM in Sodium Chloride 0.9% 500 ML IV SCH (19:00)
[2021-05-09] MEDS: Piperacillin/Tazobactam 3.375 GM in Sodium Chloride 0.9% 50 ML IV SCH ×2 (19:02→23:39)
[2021-05-09] MEDS ORDERED: Glucose Gel 15 GM in 37.5 GM Tube PO PRN (19:11)
[2021-05-09] MEDS ORDERED: Acetaminophen 325 MG Tab PO PRN (19:11)
[2021-05-09] MEDS ORDERED: Albuterol 0.083% 2.5 MG/3 ML Neb Soln INH SCH (19:11)
[2021-05-09] MEDS ORDERED: 50% Dextrose in Water 50 ML Syringe IV PRN (19:11)
[2021-05-09] MEDS ORDERED: Ondansetron 4 MG/2 ML SDV IV PRN (19:11)
[2021-05-09] MEDS: Sodium Chloride 0.9% 1,000 ML IV SCH (19:33)
[2021-05-09] MEDS: QUEtiapine 25 MG Tab PO SCH (20:56)
[2021-05-09] MEDS: Zolpidem 5 MG Tab PO SCH (20:56)
[2021-05-09] MEDS: oxyCODONE 5 MG Tab PO PRN (20:56)
[2021-05-09] MEDS: Enoxaparin 40 MG/0.4 ML Syringe SUBCUT SCH (20:57)
[2021-05-09] MEDS: Insulin Isophane NPH, Human 100 Units/ML 3 ML Vial SQ SCH (21:23)
[2021-05-09] MEDS: Insulin Lispro 100 Unit/ML 3 ML KwikPen SUBCUT SCH (21:24)
[2021-05-10] MEDS: Piperacillin/Tazobactam 3.375 GM in Sodium Chloride 0.9% 50 ML IV SCH (05:54)
[2021-05-10] MEDS: Sodium Chloride 0.9% 1,000 ML IV SCH (06:38)
[2021-05-10] MEDS ORDERED: Potassium Chloride 20 MEQ Tab.ER PO ONE ×2 (08:30→17:00)
[2021-05-10] MEDS: Vancomycin 2 GM in Sodium Chloride 0.9% 500 ML IV SCH ×2 (08:42→20:22)
[2021-05-10] MEDS: hydrOXYzine HCl 25 MG Tab PO SCH (09:00)
[2021-05-10] MEDS: Levothyroxine 100 MCG Tab PO SCH (09:00)
[2021-05-10] MEDS: Insulin Isophane NPH, Human 100 Units/ML 3 ML Vial SQ SCH ×2 (09:18→21:06)
[2021-05-10] MEDS: Insulin Lispro 100 Unit/ML 3 ML KwikPen SUBCUT SCH ×4 (09:18→21:04)
[2021-05-10] MEDS: Albuterol 0.083% 2.5 MG/3 ML Neb Soln INH PRN ×2 (09:23→23:57)
[2021-05-10] MEDS: oxyCODONE 5 MG Tab PO PRN ×2 (10:17→23:57)
--- NOTE | 2021-05-10 10:33 | PCM.PN ---
- General Info Date of Service: 05/10/21 Subjective Update: Ms. Carrington has been stable since admission last night. No significant temperature elevations and white blood cell count has normalized. There is been significant improvement in the cellulitis since admission. She is sleepy and lethargic this morning, unwilling to have much of a conversation concerning current symptoms. Functional Status: Reports: Urinating - Review of Systems General: Reports: Weakness, Fatigue. Denies: Fever, Chills Pulmonary: Reports: No Symptoms Cardiovascular: Reports: No Symptoms Gastrointestinal: Reports: No Symptoms Musculoskeletal: Reports: Other (Pain and tenderness right leg) - Patient Data Vitals - Most Recent: Last Vital Signs Temp 97 F 05/10/21 07:00 Pulse 95 05/10/21 07:00 Resp 18 05/10/21 07:00 BP 104/35 L 05/10/21 07:00 Pulse Ox 90 L 05/10/21 07:00 Weight - Most Recent: 308 lb I&O - Last 24 Hours: Intake & Output 05/09/21 05/10/21 05/10/21 22:59 06:59 14:59 Intake Total 550 600 240 Output Total 300 600 400 Balance 250 0 -160 Lab Results Last 24 Hours: Laboratory Results - last 24 hr 05/09/21 05/09/21 05/09/21 Range/Units 16:45 16:45 16:45 WBC 17.8 H (4.5-11.0) K/uL RBC 5.06 (3.30-5.50) M/uL Hgb 12.5 (12.0-15.0) g/dL Hct 40.5 (36.0-48.0) % MCV 80 (80-98) fL MCH 25 L (27-31) pg MCHC 31 L (32-36) % Plt Count 142 L (150-400) K/uL Neut % (Auto) 88.8 H (36-66) % Lymph % (Auto) 5.7 L (24-44) % [place] % (Auto) 5.1 (2-6) % Eos % (Auto) 0.2 L (2-4) % Baso % (Auto) 0.2 (0-1) % Sodium 134 L (140-148) mmol/L Potassium 4.4 (3.6-5.2) mmol/L Chloride 98 L (100-108) mmol/L Carbon Dioxide 32 (21-32) mmol/L Anion Gap 8.4 (5.0-14.0) mmol/L BUN 24 H D (7-18) mg/dL Creatinine 1.0 (0.6-1.0) mg/dL Est Cr Clr Drug Dosing 58.81 mL/min Estimated GFR (MDRD) 57 L (>60) Glucose 170 H (74-106) mg/dL POC Glucose (74-106) mg/dL Lactic Acid 1.5 (0.4-2.0) mmol/L Calcium 9.1 (8.5-10.1) mg/dL Magnesium (1.8-2.4) mg/dL Total Bilirubin (0.2-1.0) mg/dL AST (15-37) U/L ALT (12-78) U/L Alkaline Phosphatase (46-116) U/L Total Protein (6.4-8.2) g/dL Albumin (3.4-5.0) g/dL Globulin (2.3-3.5) g/dL Albumin/Globulin Ratio (1.2-2.2) 05/09/21 05/10/21 05/10/21 Range/Units 21:18 05:20 05:20 WBC 7.5 (4.5-11.0) K/uL RBC 4.42 (3.30-5.50) M/uL Hgb 10.9 L (12.0-15.0) g/dL Hct 35.7 L (36.0-48.0) % MCV 81 (80-98) fL MCH 25 L (27-31) pg MCHC 31 L (32-36) % Plt Count 99 L (150-400) K/uL Neut % (Auto) 82.3 H (36-66) % Lymph % (Auto) 9.5 L (24-44) % Screven % (Auto) 6.0 (2-6) % Eos % (Auto) 1.7 L (2-4) % Baso % (Auto) 0.5 (0-1) % Sodium 137 L (140-148) mmol/L Potassium 3.4 L (3.6-5.2) mmol/L Chloride 101 (100-108) mmol/L Carbon Dioxide 30 (21-32) mmol/L Anion Gap 9.4 (5.0-14.0) mmol/L BUN 17 (7-18) mg/dL Creatinine 0.8 (0.6-1.0) mg/dL Est Cr Clr Drug Dosing 73.51 mL/min Estimated GFR (MDRD) > 60 (>60) Glucose 176 H (74-106) mg/dL POC Glucose 222 H (74-106) mg/dL Lactic Acid (0.4-2.0) mmol/L Calcium 8.0 L (8.5-10.1) mg/dL Magnesium 2.0 (1.8-2.4) mg/dL Total Bilirubin 0.5 (0.2-1.0) mg/dL AST 20 (15-37) U/L ALT 22 (12-78) U/L Alkaline Phosphatase 78 (46-116) U/L Total Protein 5.7 L (6.4-8.2) g/dL Albumin 2.6 L (3.4-5.0) g/dL Globulin 3.1 (2.3-3.5) g/dL Albumin/Globulin Ratio 0.8 L (1.2-2.2) 05/10/21 Range/Units 07:31 WBC (4.5-11.0) K/uL RBC (3.30-5.50) M/uL Hgb (12.0-15.0) g/dL Hct (36.0-48.0) % MCV (80-98) fL MCH (27-31) pg MCHC (32-36) % Plt Count (150-400) K/uL Neut % (Auto) (36-66) % Lymph % (Auto) (24-44) % Screven % (Auto) (2-6) % Eos % (Auto) (2-4) % Baso % (Auto) (0-1) % Sodium (140-148) mmol/L Potassium (3.6-5.2) mmol/L Chloride (100-108) mmol/L Carbon Dioxide (21-32) mmol/L Anion Gap (5.0-14.0) mmol/L BUN (7-18) mg/dL Creatinine (0.6-1.0) mg/dL Est Cr Clr Drug Dosing mL/min Estimated GFR (MDRD) (>60) Glucose (74-106) mg/dL POC Glucose 158 H (74-106) mg/dL Lactic Acid (0.4-2.0) mmol/L Calcium (8.5-10.1) mg/dL Magnesium (1.8-2.4) mg/dL Total Bilirubin (0.2-1.0) mg/dL AST (15-37) U/L ALT (12-78) U/L Alkaline Phosphatase (46-116) U/L Total Protein (6.4-8.2) g/dL Albumin (3.4-5.0) g/dL Globulin (2.3-3.5) g/dL Albumin/Globulin Ratio (1.2-2.2) Med Orders - Current: Current Medications Acetaminophen (Acetaminophen 325 Mg Tab) 650 mg PO Q4H PRN PRN Reason: Pain (Mild 1-3)/fever Last Admin: 05/09/21 20:56 Dose: 650 mg Documented by: Albuterol (Albuterol 0.083% 2.5 Mg/3 Ml Neb Soln) 2.5 mg INH Q4H PRN PRN Reason: Shortness of Breath Last Admin: 05/10/21 09:23 Dose: 2.5 mg Documented by: Dextrose (Glucose Gel 15 Gm In 37.5 Gm Tube) 15 gm PO ONETIME PRN PRN Reason: Hypoglycemia Dextrose/Water (50% Dextrose In Water 50 Ml Syringe) 50 ml IV ONETIME PRN PRN Reason: Hypoglycemia Enoxaparin Sodium (Enoxaparin 40 Mg/0.4 Ml Syringe) 40 mg SUBCUT BEDTIME [facility] Last Admin: 05/09/21 20:57 Dose: 40 mg Documented by: Hydroxyzine HCl (Hydroxyzine Hcl 25 Mg Tab) 25 mg PO DAILY [facility] Last Admin: 05/10/21 09:00 Dose: 25 mg Documented by: Piperacillin/Tazobactam/ (Dextrose 3.375 gm/ Premix) 50 mls @ 100 mls/hr IV Q6H [facility] Vancomycin HCl 2 gm/ Sodium (Chloride) 500 mls @ 250 mls/hr IV Q12H [facility] Last Admin: 05/10/21 08:42 Dose: 250 mls/hr Documented by: Insulin Human Lispro (Insulin Lispro 100 Unit/Ml 3 Ml Kwikpen) 0 unit SUBCUT QIDACANDBED [facility]; Protocol Last Admin: 05/10/21 09:18 Dose: 2 units Documented by: Insulin Human NPH (Insulin Isophane Nph, Human 100 Units/Ml 3 Ml Vial) 33 unit SQ DAILY [facility] Last Admin: 05/10/21 09:18 Dose: 33 unit Documented by: Insulin Human NPH (Insulin Isophane Nph, Human 100 Units/Ml 3 Ml Vial) 35 unit SQ BEDTIME [facility] Last Admin: 05/09/21 21:23 Dose: 35 unit Documented by: Levothyroxine Sodium (Levothyroxine 100 Mcg Tab) 200 mcg PO DAILY@0730 [facility] Last Admin: 05/10/21 09:00 Dose: 200 mcg Documented by: Ondansetron HCl (Ondansetron 4 Mg/2 Ml Sdv) 4 mg IV Q4H PRN PRN Reason: Nausea/Vomiting Oxycodone HCl (Oxycodone 5 Mg Tab) 5 mg PO Q4H PRN PRN Reason: Pain Last Admin: 05/10/21 10:17 Dose: 5 mg Documented by: Polyethylene Glycol (Polyethylene Glycol 3350 Powder 17 Gm Packet) 17 gm PO DAILY PRN PRN Reason: Constipation Potassium Chloride (Potassium Chloride 20 Meq Tab.Er) 40 meq PO ONETIME ONE Stop: 05/10/21 17:01 Quetiapine Fumarate (Quetiapine 25 Mg Tab) 25 - 50 mg PO BEDTIME [facility] Last Admin: 05/09/21 20:56 Dose: 50 mg Documented by: Sodium Chloride (Sodium Chloride 0.9% 10 Ml Syringe) 10 ml FLUSH ASDIRECTED PRN PRN Reason: Keep Vein Open Zolpidem Tartrate (Zolpidem 5 Mg Tab) 10 mg PO BEDTIME [facility] Last Admin: 05/09/21 20:56 Dose: 10 mg Documented by: Discontinued Medications Albuterol (Albuterol 0.083% 2.5 Mg/3 Ml Neb Soln) 2.5 mg INH Q4H [facility] Last Admin: 05/09/21 20:15 Dose: 2.5 mg Documented by: Piperacillin Sod/Tazobactam (Sod 3.375 gm/ Sodium Chloride) 50 mls @ 100 mls/hr IV Q6H [facility] Last Admin: 05/10/21 05:54 Dose: 100 mls/hr Documented by: Vancomycin HCl 2 gm/ Sodium (Chloride) 500 mls @ 250 mls/hr IV Q12H [facility] Last Admin: 05/09/21 19:34 Dose: 250 mls/hr Documented by: Sodium Chloride (Normal Saline) 1,000 mls @ 125 mls/hr IV ASDIRECTED [facility] Last Admin: 05/10/21 06:38 Dose: 125 mls/hr Documented by: Potassium Chloride (Potassium Chloride 20 Meq Tab.Er) 40 meq PO ONETIME ONE Stop: 05/10/21 08:31 Last Admin: 05/10/21 09:54 Dose: 40 meq Documented by: Sodium Chloride (Sodium Chloride 0.9% 10 Ml Syringe) 10 ml FLUSH ASDIRECTED PRN PRN Reason: Keep Vein Open Vancomycin HCl (Vancomycin 1 Gm Sdv) 1 gm IV .PHARMACY TO DOSE [facility] Stop: 05/10/21 08:35 - Exam Quality Assessment: DVT Prophylaxis General: Lethargic Lungs: Clear to Auscultation, Normal Respiratory Effort Cardiovascular: Regular Rate, Regular Rhythm, No Murmurs GI/Abdominal Exam: Soft, Non-Tender, No Organomegaly, No Distention Extremities: Other (Significant improvement in cellulitis since admission last night) - Patient Data Lab Results Last 24 hrs: Laboratory Results - last 24 hr 05/09/21 05/09/21 05/09/21 Range/Units 16:45 16:45 16:45 WBC 17.8 H (4.5-11.0) K/uL RBC 5.06 (3.30-5.50) M/uL Hgb 12.5 (12.0-15.0) g/dL Hct 40.5 (36.0-48.0) % MCV 80 (80-98) fL MCH 25 L (27-31) pg MCHC 31 L (32-36) % Plt Count 142 L (150-400) K/uL Neut % (Auto) 88.8 H (36-66) % Lymph % (Auto) 5.7 L (24-44) % Screven % (Auto) 5.1 (2-6) % Eos % (Auto) 0.2 L (2-4) % Baso % (Auto) 0.2 (0-1) % Sodium 134 L (140-148) mmol/L Potassium 4.4 (3.6-5.2) mmol/L Chloride 98 L (100-108) mmol/L Carbon Dioxide 32 (21-32) mmol/L Anion Gap 8.4 (5.0-14.0) mmol/L BUN 24 H D (7-18) mg/dL Creatinine 1.0 (0.6-1.0) mg/dL Est Cr Clr Drug Dosing 58.81 mL/min Estimated GFR (MDRD) 57 L (>60) Glucose 170 H (74-106) mg/dL POC Glucose (74-106) mg/dL Lactic Acid 1.5 (0.4-2.0) mmol/L Calcium 9.1 (8.5-10.1) mg/dL Magnesium (1.8-2.4) mg/dL Total Bilirubin (0.2-1.0) mg/dL AST (15-37) U/L ALT (12-78) U/L Alkaline Phosphatase (46-116) U/L Total Protein (6.4-8.2) g/dL Albumin (3.4-5.0) g/dL Globulin (2.3-3.5) g/dL Albumin/Globulin Ratio (1.2-2.2) 05/09/21 05/10/21 05/10/21 Range/Units 21:18 05:20 05:20 WBC 7.5 (4.5-11.0) K/uL RBC 4.42 (3.30-5.50) M/uL Hgb 10.9 L (12.0-15.0) g/dL Hct 35.7 L (36.0-48.0) % MCV 81 (80-98) fL MCH 25 L (27-31) pg MCHC 31 L (32-36) % Plt Count 99 L (150-400) K/uL Neut % (Auto) 82.3 H (36-66) % Lymph % (Auto) 9.5 L (24-44) % Screven % (Auto) 6.0 (2-6) % Eos % (Auto) 1.7 L (2-4) % Baso % (Auto) 0.5 (0-1) % Sodium 137 L (140-148) mmol/L Potassium 3.4 L (3.6-5.2) mmol/L Chloride 101 (100-108) mmol/L Carbon Dioxide 30 (21-32) mmol/L Anion Gap 9.4 (5.0-14.0) mmol/L BUN 17 (7-18) mg/dL Creatinine 0.8 (0.6-1.0) mg/dL Est Cr Clr Drug Dosing 73.51 mL/min Estimated GFR (MDRD) > 60 (>60) Glucose 176 H (74-106) mg/dL POC Glucose 222 H (74-106) mg/dL Lactic Acid (0.4-2.0) mmol/L Calcium 8.0 L (8.5-10.1) mg/dL Magnesium 2.0 (1.8-2.4) mg/dL Total Bilirubin 0.5 (0.2-1.0) mg/dL AST 20 (15-37) U/L ALT 22 (12-78) U/L Alkaline Phosphatase 78 (46-116) U/L Total Protein 5.7 L (6.4-8.2) g/dL Albumin 2.6 L (3.4-5.0) g/dL Globulin 3.1 (2.3-3.5) g/dL Albumin/Globulin Ratio 0.8 L (1.2-2.2) 05/10/21 Range/Units 07:31 WBC (4.5-11.0) K/uL RBC (3.30-5.50) M/uL Hgb (12.0-15.0) g/dL Hct (36.0-48.0) % MCV (80-98) fL MCH (27-31) pg MCHC (32-36) % Plt Count (150-400) K/uL Neut % (Auto) (36-66) % Lymph % (Auto) (24-44) % Screven % (Auto) (2-6) % Eos % (Auto) (2-4) % Baso % (Auto) (0-1) % Sodium (140-148) mmol/L Potassium (3.6-5.2) mmol/L Chloride (100-108) mmol/L Carbon Dioxide (21-32) mmol/L Anion Gap (5.0-14.0) mmol/L BUN (7-18) mg/dL Creatinine (0.6-1.0) mg/dL Est Cr Clr Drug Dosing mL/min Estimated GFR (MDRD) (>60) Glucose (74-106) mg/dL POC Glucose 158 H (74-106) mg/dL Lactic Acid (0.4-2.0) mmol/L Calcium (8.5-10.1) mg/dL Magnesium (1.8-2.4) mg/dL Total Bilirubin (0.2-1.0) mg/dL AST (15-37) U/L ALT (12-78) U/L Alkaline Phosphatase (46-116) U/L Total Protein (6.4-8.2) g/dL Albumin (3.4-5.0) g/dL Globulin (2.3-3.5) g/dL Albumin/Globulin Ratio (1.2-2.2) Result Diagrams: 05/10/21 05:20 05/10/21 05:20 Sepsis Event Note - Evaluation Sepsis Screening Result: Sepsis Risk - Focused Exam Vital Signs: Vital Signs Temp Pulse Resp BP Pulse Ox 05/10/21 07:00 97 F 95 18 104/35 L 90 L 05/10/21 03:33 95.7 F L 88 18 97/34 L 91 L 05/09/21 23:37 96.9 F 95 18 102/42 L 91 L - Problem List Review Problem List Initiated/Reviewed/Updated: Yes - My Orders Last 24 Hours: My Active Orders 05/09/21 Dinner Consistent Carbohydrate Diet [DIET] 05/09/21 18:24 Resuscitation Status Routine 05/09/21 19:11 Acetaminophen [TylenoL] 650 mg PO Q4H PRN Dextrose 50% in Water 50 ml IV ONETIME PRN Dextrose [Glutose 15] 15 gm PO ONETIME PRN Ondansetron [Zofran] 4 mg IV Q4H PRN Sodium Chloride 0.9% [Saline Flush] 10 ml FLUSH ASDIRECTED PRN polyethylene glycoL 3350 [MiraLAX] 17 gm PO DAILY PRN 05/09/21 19:11 Patient Status [ADT] Routine Ambulate [RC] QID Communication Order [RC] STAT Diabetes Education [RC] Click to Edit Height and Weight [RC] 0500 Intake and Output [RC] QSHIFT Notify Provider Vital Signs [RC] ASDIRECTED Notify Provider [RC] PRN Oxygen Therapy [RC] PRN Peripheral IV Care [RC] Q12H RT Aerosol Therapy [RC] ASDIRECTED Up With Assistance [RC] ASDIRECTED Up to Chair [RC] QID VTE/DVT Education [RC] Per Unit Routine Vital Signs [RC] Q4H Peripheral IV Insertion Adult [OM.PC] Routine 05/09/21 20:00 Insulin Lispro [HumaLOG] See Protocol SUBCUT QIDACANDBED 05/09/21 20:09 oxyCODONE 5 mg PO Q4H PRN 05/09/21 20:43 Albuterol [Proventil Neb Soln] 2.5 mg INH Q4H PRN 05/09/21 21:00 Enoxaparin [Lovenox] 40 mg SUBCUT BEDTIME Insulin NPH Human Isophane [HumuLIN N] 35 unit SQ BEDTIME QUEtiapine [SEROqueL] 25 - 50 mg PO BEDTIME Zolpidem [Ambien] 10 mg PO BEDTIME 05/10/21 07:30 Levothyroxine [Synthroid] 200 mcg PO DAILY@0730 05/10/21 09:00 Insulin NPH Human Isophane [HumuLIN N] 33 unit SQ DAILY hydrOXYzine HCL [Atarax] 25 mg PO DAILY 05/10/21 10:23 Convert IV to Saline Lock [OM.PC] Routine 05/10/21 11:30 GLUCOSE POC LAB TO COLLECT JPM [POC] QIDACANDBED 05/10/21 12:00 Piperacillin/Tazobactam/Dext [Zosyn in Dextrose Iso-Osmotic 3.375 GM/50 ML] 3.375 gm Premix Bag 1 bag IV Q6H 05/10/21 16:30 GLUCOSE POC LAB TO COLLECT JPM [POC] QIDACANDBED 05/10/21 17:00 Potassium Chloride [Klor-Con M20] 40 meq PO ONETIME ONE 05/10/21 21:00 GLUCOSE POC LAB TO COLLECT JPM [POC] QIDACANDBED 05/11/21 05:00 BASIC METABOLIC PANEL,BMP [CHEM] Timed CBC WITH AUTO DIFF [HEME] Timed 05/11/21 07:30 GLUCOSE POC LAB TO COLLECT JPM [POC] QIDACANDBED 05/11/21 11:30 GLUCOSE POC LAB TO COLLECT JPM [POC] QIDACANDBED 05/11/21 16:30 GLUCOSE POC LAB TO COLLECT JPM [POC] QIDACANDBED 05/11/21 21:00 GLUCOSE POC LAB TO COLLECT JPM [POC] QIDACANDBED 05/12/21 07:30 GLUCOSE POC LAB TO COLLECT JPM [POC] QIDACANDBED VANCOMYCIN TROUGH [CHEM] Timed 05/12/21 11:30 GLUCOSE POC LAB TO COLLECT JPM [POC] QIDACANDBED 05/12/21 16:30 GLUCOSE POC LAB TO COLLECT JPM [POC] QIDACANDBED 05/12/21 21:00 GLUCOSE POC LAB TO COLLECT JPM [POC] QIDACANDBED 05/13/21 07:30 GLUCOSE POC LAB TO COLLECT JPM [POC] QIDACANDBED 05/13/21 11:30 GLUCOSE POC LAB TO COLLECT JPM [POC] QIDACANDBED 05/13/21 16:30 GLUCOSE POC LAB TO COLLECT JPM [POC] QIDACANDBED 05/13/21 21:00 GLUCOSE POC LAB TO COLLECT JPM [POC] QIDACANDBED 05/14/21 07:30 GLUCOSE POC LAB TO COLLECT JPM [POC] QIDACANDBED 05/14/21 11:30 GLUCOSE POC LAB TO COLLECT JPM [POC] QIDACANDBED 05/14/21 16:30 GLUCOSE POC LAB TO COLLECT JPM [POC] QIDACANDBED 05/14/21 21:00 GLUCOSE POC LAB TO COLLECT JPM [POC] QIDACANDBED 05/15/21 07:30 GLUCOSE POC LAB TO COLLECT JPM [POC] QIDACANDBED 05/15/21 11:30 GLUCOSE POC LAB TO COLLECT JPM [POC] QIDACANDBED 05/15/21 16:30 GLUCOSE POC LAB TO COLLECT JPM [POC] QIDACANDBED - Plan Plan:: ASSESSMENT AND PLAN EXTENSIVE CELLULITIS AND EARLY SEPSIS-sepsis has resolved, good improvement in cellulitis since admission -Blood cultures pending -Saline lock IV -IV vancomycin and Zosyn, pending culture results TYPE 2 DIABETES MELLITUS -4 times daily glucometers -Continue outpatient NPH insulin 30 units subcu twice daily -Moderate dose sliding scale Humalog HISTORY OF MALIGNANT MELANOMA-currently receiving treatment MAINTENANCE ISSUES -DVT prophylaxis; Lovenox 40 mg subcu daily -GI prophylaxis; not indicated -Rao catheter; -Nutrition; consistent carbohydrate diet -Nicotine dependence; not required CODE STATUS-FULL CODE ADMISSION STATUS-patient will be admitted to inpatient status, expect at least a 2 night hospital stay for evaluation and management of problems as outlined above. At the time of this admission I do not reasonably expected evaluation and management of this problem will require more than a 96 hour hospital stay. DISPOSITION-anticipate discharge to home after the hospital stay.
[2021-05-10] MEDS: Piperacillin/Tazobactam/Dext 3.375 GM in Premix Bag 1 BAG IV SCH ×3 (11:59→23:49)
[2021-05-10] MEDS: Polyethylene Glycol 3350 Powder 17 GM Packet PO PRN (19:15)
[2021-05-10] MEDS: QUEtiapine 25 MG Tab PO SCH (21:03)
[2021-05-10] MEDS: Enoxaparin 40 MG/0.4 ML Syringe SUBCUT SCH (21:04)
[2021-05-10] MEDS: Zolpidem 5 MG Tab PO SCH (21:04)
[2021-05-11] MEDS: Piperacillin/Tazobactam/Dext 3.375 GM in Premix Bag 1 BAG IV SCH ×4 (05:39→23:23)
[2021-05-11] MEDS: Insulin Lispro 100 Unit/ML 3 ML KwikPen SUBCUT SCH ×4 (07:33→21:25)
[2021-05-11] MEDS: Vancomycin 2 GM in Sodium Chloride 0.9% 500 ML IV SCH ×2 (07:44→19:50)
[2021-05-11] MEDS: Levothyroxine 100 MCG Tab PO SCH (07:44)
[2021-05-11] MEDS: hydrOXYzine HCl 25 MG Tab PO SCH (09:11)
[2021-05-11] MEDS: Insulin Isophane NPH, Human 100 Units/ML 3 ML Vial SQ SCH ×2 (09:15→21:26)
--- NOTE | 2021-05-11 12:12 | PCM.PN ---
- General Info Date of Service: 05/11/21 Subjective Update: There were no acute events overnight. Patient reports no significant pain in the right extremity. She does note some swelling which is stable. She thinks the redness has improved significantly. She feels tired and a little bit weak. She is tearful and frustrated with the multiple infections that she has suffered in the right lower extremity. She is hoping for some way to avoid future infections. Appetite is okay. No fevers. White count is normal. Functional Status: Reports: Pain Controlled, Tolerating Diet - Review of Systems General: Denies: Fever Musculoskeletal: Denies: Leg Pain - Patient Data Vitals - Most Recent: Last Vital Signs Temp 36.4 C 05/11/21 10:59 Pulse 94 05/11/21 10:59 Resp 16 05/11/21 10:59 BP 125/61 05/11/21 10:59 Pulse Ox 95 05/11/21 10:59 Weight - Most Recent: 139.706 kg I&O - Last 24 Hours: Intake & Output 05/10/21 05/11/21 05/11/21 22:59 06:59 14:59 Intake Total 2434 100 1030 Output Total 1050 1150 600 Balance 1384 -1050 430 Lab Results Last 24 Hours: Laboratory Results - last 24 hr 05/10/21 05/10/21 05/11/21 Range/Units 16:23 21:05 05:22 WBC 5.6 (4.5-11.0) K/uL RBC 4.29 (3.30-5.50) M/uL Hgb 10.8 L (12.0-15.0) g/dL Hct 35.5 L (36.0-48.0) % MCV 83 (80-98) fL MCH 25 L (27-31) pg MCHC 30 L (32-36) % Plt Count 119 L (150-400) K/uL Neut % (Auto) 70.9 H (36-66) % Lymph % (Auto) 17.0 L (24-44) % Summers % (Auto) 7.5 H (2-6) % Eos % (Auto) 4.1 H (2-4) % Baso % (Auto) 0.5 (0-1) % Sodium (140-148) mmol/L Potassium (3.6-5.2) mmol/L Chloride (100-108) mmol/L Carbon Dioxide (21-32) mmol/L Anion Gap (5.0-14.0) mmol/L BUN (7-18) mg/dL Creatinine (0.6-1.0) mg/dL Est Cr Clr Drug Dosing mL/min Estimated GFR (MDRD) (>60) Glucose (74-106) mg/dL POC Glucose 191 H 207 H (74-106) mg/dL Calcium (8.5-10.1) mg/dL 05/11/21 05/11/21 05/11/21 Range/Units 05:22 07:26 11:20 WBC (4.5-11.0) K/uL RBC (3.30-5.50) M/uL Hgb (12.0-15.0) g/dL Hct (36.0-48.0) % MCV (80-98) fL MCH (27-31) pg MCHC (32-36) % Plt Count (150-400) K/uL Neut % (Auto) (36-66) % Lymph % (Auto) (24-44) % Summers % (Auto) (2-6) % Eos % (Auto) (2-4) % Baso % (Auto) (0-1) % Sodium 137 L (140-148) mmol/L Potassium 4.3 (3.6-5.2) mmol/L Chloride 102 (100-108) mmol/L Carbon Dioxide 30 (21-32) mmol/L Anion Gap 9.3 (5.0-14.0) mmol/L BUN 14 (7-18) mg/dL Creatinine 0.8 (0.6-1.0) mg/dL Est Cr Clr Drug Dosing 70.66 mL/min Estimated GFR (MDRD) > 60 (>60) Glucose 119 H (74-106) mg/dL POC Glucose 126 H 136 H (74-106) mg/dL Calcium 8.1 L (8.5-10.1) mg/dL Parker Results Last 24 Hours: Microbiology 05/09/21 16:50 Aerobic Blood Culture - Preliminary Blood - Arm, Right NO GROWTH AFTER 1 DAY Anaerobic Blood Culture - Preliminary NO GROWTH AFTER 1 DAY 05/09/21 16:45 Aerobic Blood Culture - Preliminary Blood - Arm, Right NO GROWTH AFTER 1 DAY Anaerobic Blood Culture - Preliminary NO GROWTH AFTER 1 DAY Med Orders - Current: Current Medications Acetaminophen (Acetaminophen 325 Mg Tab) 650 mg PO Q4H PRN PRN Reason: Pain (Mild 1-3)/fever Last Admin: 05/09/21 20:56 Dose: 650 mg Documented by: Albuterol (Albuterol 0.083% 2.5 Mg/3 Ml Neb Soln) 2.5 mg INH Q4H PRN PRN Reason: Shortness of Breath Last Admin: 05/10/21 23:57 Dose: 2.5 mg Documented by: Dextrose (Glucose Gel 15 Gm In 37.5 Gm Tube) 15 gm PO ONETIME PRN PRN Reason: Hypoglycemia Dextrose/Water (50% Dextrose In Water 50 Ml Syringe) 50 ml IV ONETIME PRN PRN Reason: Hypoglycemia Enoxaparin Sodium (Enoxaparin 40 Mg/0.4 Ml Syringe) 40 mg SUBCUT BEDTIME [facility] Last Admin: 05/10/21 21:04 Dose: 40 mg Documented by: Hydroxyzine HCl (Hydroxyzine Hcl 25 Mg Tab) 25 mg PO DAILY [facility] Last Admin: 05/11/21 09:11 Dose: Not Given Documented by: Piperacillin/Tazobactam/ (Dextrose 3.375 gm/ Premix) 50 mls @ 100 mls/hr IV Q6H [facility] Last Admin: 05/11/21 12:05 Dose: 100 mls/hr Documented by: Vancomycin HCl 2 gm/ Sodium (Chloride) 500 mls @ 250 mls/hr IV Q12H [facility] Last Admin: 05/11/21 07:44 Dose: 250 mls/hr Documented by: Insulin Human Lispro (Insulin Lispro 100 Unit/Ml 3 Ml Kwikpen) 0 unit SUBCUT QIDACANDBED [facility]; Protocol Last Admin: 05/11/21 11:22 Dose: Not Given Documented by: Insulin Human NPH (Insulin Isophane Nph, Human 100 Units/Ml 3 Ml Vial) 33 unit SQ DAILY [facility] Last Admin: 05/11/21 09:15 Dose: 33 unit Documented by: Insulin Human NPH (Insulin Isophane Nph, Human 100 Units/Ml 3 Ml Vial) 35 unit SQ BEDTIME [facility] Last Admin: 05/10/21 21:06 Dose: 35 unit Documented by: Levothyroxine Sodium (Levothyroxine 100 Mcg Tab) 200 mcg PO DAILY@0730 [facility] Last Admin: 05/11/21 07:44 Dose: 200 mcg Documented by: Ondansetron HCl (Ondansetron 4 Mg/2 Ml Sdv) 4 mg IV Q4H PRN PRN Reason: Nausea/Vomiting Oxycodone HCl (Oxycodone 5 Mg Tab) 5 mg PO Q4H PRN PRN Reason: Pain Last Admin: 05/10/21 23:57 Dose: 5 mg Documented by: Polyethylene Glycol (Polyethylene Glycol 3350 Powder 17 Gm Packet) 17 gm PO DAILY PRN PRN Reason: Constipation Last Admin: 05/10/21 19:15 Dose: 17 gm Documented by: Quetiapine Fumarate (Quetiapine 25 Mg Tab) 25 - 50 mg PO BEDTIME [facility] Last Admin: 05/10/21 21:03 Dose: 50 mg Documented by: Sodium Chloride (Sodium Chloride 0.9% 10 Ml Syringe) 10 ml FLUSH ASDIRECTED PRN PRN Reason: Keep Vein Open Zolpidem Tartrate (Zolpidem 5 Mg Tab) 10 mg PO BEDTIME [facility] Last Admin: 05/10/21 21:04 Dose: 10 mg Documented by: Discontinued Medications Albuterol (Albuterol 0.083% 2.5 Mg/3 Ml Neb Soln) 2.5 mg INH Q4H [facility] Last Admin: 05/09/21 20:15 Dose: 2.5 mg Documented by: Piperacillin Sod/Tazobactam (Sod 3.375 gm/ Sodium Chloride) 50 mls @ 100 mls/hr IV Q6H [facility] Last Admin: 05/10/21 05:54 Dose: 100 mls/hr Documented by: Vancomycin HCl 2 gm/ Sodium (Chloride) 500 mls @ 250 mls/hr IV Q12H [facility] Last Admin: 05/09/21 19:34 Dose: 250 mls/hr Documented by: Sodium Chloride (Normal Saline) 1,000 mls @ 125 mls/hr IV ASDIRECTED [facility] Last Admin: 05/10/21 06:38 Dose: 125 mls/hr Documented by: Potassium Chloride (Potassium Chloride 20 Meq Tab.Er) 40 meq PO ONETIME ONE Stop: 05/10/21 08:31 Last Admin: 05/10/21 09:54 Dose: 40 meq Documented by: Potassium Chloride (Potassium Chloride 20 Meq Tab.Er) 40 meq PO ONETIME ONE Stop: 05/10/21 17:01 Last Admin: 05/10/21 16:45 Dose: 40 meq Documented by: Sodium Chloride (Sodium Chloride 0.9% 10 Ml Syringe) 10 ml FLUSH ASDIRECTED PRN PRN Reason: Keep Vein Open Vancomycin HCl (Vancomycin 1 Gm Sdv) 1 gm IV .PHARMACY TO DOSE [facility] Stop: 05/10/21 08:35 - Exam Quality Assessment: No: Supplemental Oxygen General: Alert, Oriented, Cooperative, No Acute Distress Lungs: Normal Respiratory Effort GI/Abdominal Exam: Soft, No Distention Extremities: Pedal Edema (mild, right lower leg including foot and lower 1/3 of leg ), Increased Warmth (mild right thigh ) Skin: Warm, Dry Psy/Mental Status: Alert, Normal Affect - Patient Data Lab Results Last 24 hrs: Laboratory Results - last 24 hr 05/10/21 05/10/21 05/11/21 Range/Units 16:23 21:05 05:22 WBC 5.6 (4.5-11.0) K/uL RBC 4.29 (3.30-5.50) M/uL Hgb 10.8 L (12.0-15.0) g/dL Hct 35.5 L (36.0-48.0) % MCV 83 (80-98) fL MCH 25 L (27-31) pg MCHC 30 L (32-36) % Plt Count 119 L (150-400) K/uL Neut % (Auto) 70.9 H (36-66) % Lymph % (Auto) 17.0 L (24-44) % Summers % (Auto) 7.5 H (2-6) % Eos % (Auto) 4.1 H (2-4) % Baso % (Auto) 0.5 (0-1) % Sodium (140-148) mmol/L Potassium (3.6-5.2) mmol/L Chloride (100-108) mmol/L Carbon Dioxide (21-32) mmol/L Anion Gap (5.0-14.0) mmol/L BUN (7-18) mg/dL Creatinine (0.6-1.0) mg/dL Est Cr Clr Drug Dosing mL/min Estimated GFR (MDRD) (>60) Glucose (74-106) mg/dL POC Glucose 191 H 207 H (74-106) mg/dL Calcium (8.5-10.1) mg/dL 05/11/21 05/11/21 05/11/21 Range/Units 05:22 07:26 11:20 WBC (4.5-11.0) K/uL RBC (3.30-5.50) M/uL Hgb (12.0-15.0) g/dL Hct (36.0-48.0) % MCV (80-98) fL MCH (27-31) pg MCHC (32-36) % Plt Count (150-400) K/uL Neut % (Auto) (36-66) % Lymph % (Auto) (24-44) % Summers % (Auto) (2-6) % Eos % (Auto) (2-4) % Baso % (Auto) (0-1) % Sodium 137 L (140-148) mmol/L Potassium 4.3 (3.6-5.2) mmol/L Chloride 102 (100-108) mmol/L Carbon Dioxide 30 (21-32) mmol/L Anion Gap 9.3 (5.0-14.0) mmol/L BUN 14 (7-18) mg/dL Creatinine 0.8 (0.6-1.0) mg/dL Est Cr Clr Drug Dosing 70.66 mL/min Estimated GFR (MDRD) > 60 (>60) Glucose 119 H (74-106) mg/dL POC Glucose 126 H 136 H (74-106) mg/dL Calcium 8.1 L (8.5-10.1) mg/dL Result Diagrams: 05/11/21 05:22 05/11/21 05:22 Parker Results Last 24 hrs: Microbiology 05/09/21 16:50 Aerobic Blood Culture - Preliminary Blood - Arm, Right NO GROWTH AFTER 1 DAY Anaerobic Blood Culture - Preliminary NO GROWTH AFTER 1 DAY 05/09/21 16:45 Aerobic Blood Culture - Preliminary Blood - Arm, Right NO GROWTH AFTER 1 DAY Anaerobic Blood Culture - Preliminary NO GROWTH AFTER 1 DAY Sepsis Event Note - Evaluation Sepsis Screening Result: No Definite Risk - Focused Exam Vital Signs: Vital Signs Temp Pulse Resp BP Pulse Ox 05/11/21 10:59 36.4 C 94 16 125/61 95 05/11/21 07:13 36.2 C 85 16 93/41 L 91 L 05/11/21 03:15 94 L 05/11/21 03:00 35.2 C L 88 17 117/40 L 86 L - Problem List Review Problem List Initiated/Reviewed/Updated: Yes - Plan Plan:: ASSESSMENT AND PLAN EXTENSIVE CELLULITIS AND EARLY SEPSIS-sepsis has resolved. Cellulitis is improving. Cultures negative so far. -Follow-up cultures -Saline lock IV -Continue IV vancomycin and Zosyn, plan to de-escalate tomorrow if cultures negative -Continue lower extremity compression to help with edema TYPE 2 DIABETES MELLITUS-well controlled so far. -4 times daily glucometers -Continue outpatient NPH insulin 30 units subcu twice daily -Moderate dose sliding scale Humalog HISTORY OF MALIGNANT MELANOMA-currently receiving treatment. MAINTENANCE ISSUES -DVT prophylaxis; Lovenox 40 mg subcu daily -GI prophylaxis; not indicated -Nutrition; consistent carbohydrate diet DISPOSITION-anticipate discharge to home after the hospital stay. Karthikeyan Malin MD
[2021-05-11] MEDS: Polyethylene Glycol 3350 Powder 17 GM Packet PO PRN (19:25)
[2021-05-11] MEDS: Lactobacillus Rhamnosus GG (Probiotic) Cap PO SCH (21:20)
[2021-05-11] MEDS: Enoxaparin 40 MG/0.4 ML Syringe SUBCUT SCH (21:27)
[2021-05-11] MEDS: Zolpidem 5 MG Tab PO SCH (21:30)
[2021-05-11] MEDS: QUEtiapine 25 MG Tab PO SCH (21:30)
[2021-05-12] MEDS: Piperacillin/Tazobactam/Dext 3.375 GM in Premix Bag 1 BAG IV SCH ×4 (05:17→23:30)
[2021-05-12] MEDS: Insulin Lispro 100 Unit/ML 3 ML KwikPen SUBCUT SCH ×4 (07:52→21:30)
[2021-05-12] MEDS: Levothyroxine 100 MCG Tab PO SCH (07:53)
[2021-05-12] MEDS: Vancomycin 2 GM in Sodium Chloride 0.9% 500 ML IV SCH ×2 (07:53→20:15)
[2021-05-12] MEDS: Lactobacillus Rhamnosus GG (Probiotic) Cap PO SCH ×2 (09:30→21:32)
[2021-05-12] MEDS: hydrOXYzine HCl 25 MG Tab PO SCH (09:30)
[2021-05-12] MEDS: Insulin Isophane NPH, Human 100 Units/ML 3 ML Vial SQ SCH ×2 (09:33→21:38)
--- NOTE | 2021-05-12 10:43 | PCM.PN ---
- General Info Date of Service: 05/12/21 Subjective Update: No acute issues overnight. No fevers overnight. Patient did report a slight increase in pain in the right lower leg overnight and thinks it is a little bit more swollen today. She also thinks that the redness might be slightly more intense in the distal right leg. Appetite is okay. Energy is a little better today. Still fatigued. Blood sugars have been well controlled. Vital signs have been stable. Cultures remain negative. Functional Status: Reports: Pain Controlled - Review of Systems General: Denies: Fever Cardiovascular: Reports: Edema Musculoskeletal: Reports: Leg Pain - Patient Data Vitals - Most Recent: Last Vital Signs Temp 34.4 C L 05/12/21 07:55 Pulse 81 05/12/21 07:55 Resp 18 05/12/21 07:55 BP 96/47 L 05/12/21 07:55 Pulse Ox 89 L 05/12/21 07:55 Weight - Most Recent: 139.706 kg I&O - Last 24 Hours: Intake & Output 05/11/21 05/12/21 05/12/21 22:59 06:59 14:59 Intake Total 600 Output Total 1500 1900 Balance -900 -1900 Lab Results Last 24 Hours: Laboratory Results - last 24 hr 05/11/21 05/11/21 05/11/21 Range/Units 11:20 16:43 21:07 POC Glucose 136 H 160 H 162 H (74-106) mg/dL Vancomycin Trough (10.0-20.0) ug/mL 05/12/21 05/12/21 Range/Units 07:25 07:25 POC Glucose 101 (74-106) mg/dL Vancomycin Trough 16.0 (10.0-20.0) ug/mL [facility] Results Last 24 Hours: Microbiology 05/09/21 16:50 Aerobic Blood Culture - Preliminary Blood - Arm, Right NO GROWTH AFTER 2 DAYS Anaerobic Blood Culture - Preliminary NO GROWTH AFTER 2 DAYS 05/09/21 16:45 Aerobic Blood Culture - Preliminary Blood - Arm, Right NO GROWTH AFTER 2 DAYS Anaerobic Blood Culture - Preliminary NO GROWTH AFTER 2 DAYS Med Orders - Current: Current Medications Acetaminophen (Acetaminophen 325 Mg Tab) 650 mg PO Q4H PRN PRN Reason: Pain (Mild 1-3)/fever Last Admin: 05/09/21 20:56 Dose: 650 mg Documented by: Albuterol (Albuterol 0.083% 2.5 Mg/3 Ml Neb Soln) 2.5 mg INH Q4H PRN PRN Reason: Shortness of Breath Last Admin: 05/10/21 23:57 Dose: 2.5 mg Documented by: Dextrose (Glucose Gel 15 Gm In 37.5 Gm Tube) 15 gm PO ONETIME PRN PRN Reason: Hypoglycemia Dextrose/Water (50% Dextrose In Water 50 Ml Syringe) 50 ml IV ONETIME PRN PRN Reason: Hypoglycemia Enoxaparin Sodium (Enoxaparin 40 Mg/0.4 Ml Syringe) 40 mg SUBCUT BEDTIME [facility] Last Admin: 05/11/21 21:27 Dose: 40 mg Documented by: Hydroxyzine HCl (Hydroxyzine Hcl 25 Mg Tab) 25 mg PO DAILY [facility] Last Admin: 05/12/21 09:30 Dose: 25 mg Documented by: Piperacillin/Tazobactam/ (Dextrose 3.375 gm/ Premix) 50 mls @ 100 mls/hr IV Q6H [facility] Last Admin: 05/12/21 05:17 Dose: 100 mls/hr Documented by: Vancomycin HCl 2 gm/ Sodium (Chloride) 500 mls @ 250 mls/hr IV Q12H [facility] Last Admin: 05/12/21 07:53 Dose: 250 mls/hr Documented by: Insulin Human Lispro (Insulin Lispro 100 Unit/Ml 3 Ml Kwikpen) 0 unit SUBCUT QIDACANDBED [facility]; Protocol Last Admin: 05/12/21 07:52 Dose: Not Given Documented by: Insulin Human NPH (Insulin Isophane Nph, Human 100 Units/Ml 3 Ml Vial) 33 unit SQ DAILY [facility] Last Admin: 05/12/21 09:33 Dose: 33 unit Documented by: Insulin Human NPH (Insulin Isophane Nph, Human 100 Units/Ml 3 Ml Vial) 35 unit SQ BEDTIME [facility] Last Admin: 05/11/21 21:26 Dose: 35 unit Documented by: Lactobacillus Rhamnosus (Lactobacillus Rhamnosus Gg (Probiotic) Cap) 1 cap PO BID [facility] Last Admin: 05/12/21 09:30 Dose: 1 cap Documented by: Levothyroxine Sodium (Levothyroxine 100 Mcg Tab) 200 mcg PO DAILY@0730 [facility] Last Admin: 05/12/21 07:53 Dose: 200 mcg Documented by: Ondansetron HCl (Ondansetron 4 Mg/2 Ml Sdv) 4 mg IV Q4H PRN PRN Reason: Nausea/Vomiting Oxycodone HCl (Oxycodone 5 Mg Tab) 5 mg PO Q4H PRN PRN Reason: Pain Last Admin: 05/10/21 23:57 Dose: 5 mg Documented by: Polyethylene Glycol (Polyethylene Glycol 3350 Powder 17 Gm Packet) 17 gm PO DAILY PRN PRN Reason: Constipation Last Admin: 05/11/21 19:25 Dose: 17 gm Documented by: Quetiapine Fumarate (Quetiapine 25 Mg Tab) 25 - 50 mg PO BEDTIME [facility] Last Admin: 05/11/21 21:30 Dose: 50 mg Documented by: Sodium Chloride (Sodium Chloride 0.9% 10 Ml Syringe) 10 ml FLUSH ASDIRECTED PRN PRN Reason: Keep Vein Open Zolpidem Tartrate (Zolpidem 5 Mg Tab) 10 mg PO BEDTIME [facility] Last Admin: 05/11/21 21:30 Dose: 10 mg Documented by: Discontinued Medications Albuterol (Albuterol 0.083% 2.5 Mg/3 Ml Neb Soln) 2.5 mg INH Q4H [facility] Last Admin: 05/09/21 20:15 Dose: 2.5 mg Documented by: Piperacillin Sod/Tazobactam (Sod 3.375 gm/ Sodium Chloride) 50 mls @ 100 mls/hr IV Q6H [facility] Last Admin: 05/10/21 05:54 Dose: 100 mls/hr Documented by: Vancomycin HCl 2 gm/ Sodium (Chloride) 500 mls @ 250 mls/hr IV Q12H [facility] Last Admin: 05/09/21 19:34 Dose: 250 mls/hr Documented by: Sodium Chloride (Normal Saline) 1,000 mls @ 125 mls/hr IV ASDIRECTED [facility] Last Admin: 05/10/21 06:38 Dose: 125 mls/hr Documented by: Potassium Chloride (Potassium Chloride 20 Meq Tab.Er) 40 meq PO ONETIME ONE Stop: 05/10/21 08:31 Last Admin: 05/10/21 09:54 Dose: 40 meq Documented by: Potassium Chloride (Potassium Chloride 20 Meq Tab.Er) 40 meq PO ONETIME ONE Stop: 05/10/21 17:01 Last Admin: 05/10/21 16:45 Dose: 40 meq Documented by: Sodium Chloride (Sodium Chloride 0.9% 10 Ml Syringe) 10 ml FLUSH ASDIRECTED PRN PRN Reason: Keep Vein Open Vancomycin HCl (Vancomycin 1 Gm Sdv) 1 gm IV .PHARMACY TO DOSE [facility] Stop: 05/10/21 08:35 - Exam Quality Assessment: No: Supplemental Oxygen General: Alert, Oriented, Cooperative, No Acute Distress Lungs: Normal Respiratory Effort GI/Abdominal Exam: Soft, No Distention Extremities: Pedal Edema (right foot and distal 1/2 of leg ), Increased Warmth (right lower leg ) Skin: Warm, Dry, Rash (erythema of right lower leg from ankle to below the knee) Psy/Mental Status: Alert, Normal Affect - Patient Data Lab Results Last 24 hrs: Laboratory Results - last 24 hr 05/11/21 05/11/21 05/11/21 Range/Units 11:20 16:43 21:07 POC Glucose 136 H 160 H 162 H (74-106) mg/dL Vancomycin Trough (10.0-20.0) ug/mL 05/12/21 05/12/21 Range/Units 07:25 07:25 POC Glucose 101 (74-106) mg/dL Vancomycin Trough 16.0 (10.0-20.0) ug/mL Result Diagrams: 05/11/21 05:22 05/11/21 05:22 [facility] Results Last 24 hrs: Microbiology 05/09/21 16:50 Aerobic Blood Culture - Preliminary Blood - Arm, Right NO GROWTH AFTER 2 DAYS Anaerobic Blood Culture - Preliminary NO GROWTH AFTER 2 DAYS 05/09/21 16:45 Aerobic Blood Culture - Preliminary Blood - Arm, Right NO GROWTH AFTER 2 DAYS Anaerobic Blood Culture - Preliminary NO GROWTH AFTER 2 DAYS Sepsis Event Note - Evaluation Sepsis Screening Result: No Definite Risk - Focused Exam Vital Signs: Vital Signs Temp Pulse Resp BP Pulse Ox 05/12/21 07:55 34.4 C L 81 18 96/47 L 89 L 05/11/21 23:24 35.1 C L 73 18 113/43 L 95 - Problem List Review Problem List Initiated/Reviewed/Updated: Yes - My Orders Last 24 Hours: My Active Orders 05/11/21 21:00 Lactobacillus Rhamnosus GG [Culturelle] 1 cap PO BID 05/12/21 10:40 Brian Bandage [RC] ROUTINE Wound Care [RC] DAILY - Plan Plan:: ASSESSMENT AND PLAN EXTENSIVE RIGHT LOWER EXTREMITY CELLULITIS AND EARLY SEPSIS-sepsis has resolved. Cellulitis continues to improve in the upper portion of the leg but there may be a slight increase in redness and swelling of the right lower extremity. Blood cultures are negative. -Follow-up cultures -Saline lock IV -Continue IV vancomycin and Zosyn, plan to reassess tomorrow -Continue lower extremity compression with Brian wraps to help with edema -Elevate leg as able TYPE 2 DIABETES MELLITUS-well controlled so far. -4 times daily glucometers -Continue outpatient NPH insulin 30 units subcu twice daily -Moderate dose sliding scale Humalog HISTORY OF MALIGNANT MELANOMA-currently receiving treatment. MAINTENANCE ISSUES -DVT prophylaxis; Lovenox 40 mg subcu daily -GI prophylaxis; not indicated -Nutrition; consistent carbohydrate diet DISPOSITION-anticipate discharge to home after the hospital stay. Karthikeyan Malin MD
[2021-05-12] MEDS ORDERED: Magnesium Hydroxide 400 MG/5 ML Susp 30 ML Cup PO PRN (12:30)
[2021-05-12] MEDS ORDERED: Bisacodyl 5 MG Tab PO PRN (12:30)
[2021-05-12] MEDS: Docusate Sodium 100 MG Cap PO SCH ×2 (13:28→21:32)
[2021-05-12] MEDS: Albuterol 0.083% 2.5 MG/3 ML Neb Soln INH PRN (20:14)
[2021-05-12] MEDS: Enoxaparin 40 MG/0.4 ML Syringe SUBCUT SCH (21:32)
[2021-05-12] MEDS: QUEtiapine 25 MG Tab PO SCH (21:33)
[2021-05-12] MEDS: oxyCODONE 5 MG Tab PO PRN (21:33)
[2021-05-12] MEDS: Zolpidem 5 MG Tab PO SCH (21:38)
[2021-05-13] MEDS: oxyCODONE 5 MG Tab PO PRN ×2 (04:59→19:56)
[2021-05-13] MEDS: Piperacillin/Tazobactam/Dext 3.375 GM in Premix Bag 1 BAG IV SCH (05:04)
[2021-05-13] MEDS: Insulin Lispro 100 Unit/ML 3 ML KwikPen SUBCUT SCH ×4 (07:29→21:28)
[2021-05-13] MEDS: Levothyroxine 100 MCG Tab PO SCH (07:47)
[2021-05-13] MEDS: Vancomycin 2 GM in Sodium Chloride 0.9% 500 ML IV SCH (07:48)
[2021-05-13] MEDS: hydrOXYzine HCl 25 MG Tab PO SCH (08:50)
[2021-05-13] MEDS: Lactobacillus Rhamnosus GG (Probiotic) Cap PO SCH ×2 (08:50→21:29)
[2021-05-13] MEDS: Docusate Sodium 100 MG Cap PO SCH ×2 (08:50→21:29)
[2021-05-13] MEDS: Insulin Isophane NPH, Human 100 Units/ML 3 ML Vial SQ SCH ×2 (08:59→21:30)
--- NOTE | 2021-05-13 09:57 | PCM.PN ---
- General Info Date of Service: 05/13/21 Subjective Update: No acute events overnight. Right leg pain is stable and similar to baseline. Her legs were wrapped all day yesterday and overnight. Swelling is better today. No fevers. She thinks the leg looks better with less swelling and less erythema. Appetite is okay. Energy is still decreased. She is very nervous about going home and worried that things will get worse. Functional Status: Reports: Pain Controlled, Tolerating Diet - Review of Systems General: Denies: Fever - Patient Data Vitals - Most Recent: Last Vital Signs Temp 35.8 C L 05/13/21 07:26 Pulse 80 05/13/21 07:26 Resp 18 05/13/21 07:26 BP 113/56 L 05/13/21 07:26 Pulse Ox 90 L 05/13/21 07:26 Weight - Most Recent: 144.333 kg I&O - Last 24 Hours: Intake & Output 05/12/21 05/13/21 05/13/21 22:59 06:59 14:59 Intake Total 100 1446 Output Total 800 1000 325 Balance -800 -900 1121 Lab Results Last 24 Hours: Laboratory Results - last 24 hr 05/12/21 05/12/21 05/12/21 Range/Units 11:29 16:27 20:47 POC Glucose 180 H 146 H 208 H (74-106) mg/dL 05/13/21 Range/Units 07:20 POC Glucose 82 (74-106) mg/dL [facility] Results Last 24 Hours: Microbiology 05/09/21 16:45 Aerobic Blood Culture - Preliminary Blood - Arm, Right NO GROWTH AFTER 3 DAYS Anaerobic Blood Culture - Preliminary NO GROWTH AFTER 3 DAYS 05/09/21 16:50 Aerobic Blood Culture - Preliminary Blood - Arm, Right NO GROWTH AFTER 3 DAYS Anaerobic Blood Culture - Preliminary NO GROWTH AFTER 3 DAYS Med Orders - Current: Current Medications Acetaminophen (Acetaminophen 325 Mg Tab) 650 mg PO Q4H PRN PRN Reason: Pain (Mild 1-3)/fever Last Admin: 05/09/21 20:56 Dose: 650 mg Documented by: Albuterol (Albuterol 0.083% 2.5 Mg/3 Ml Neb Soln) 2.5 mg INH Q4H PRN PRN Reason: Shortness of Breath Last Admin: 05/12/21 20:14 Dose: 2.5 mg Documented by: Bisacodyl (Bisacodyl 5 Mg Tab) 10 mg PO DAILY PRN PRN Reason: Constipation Dextrose (Glucose Gel 15 Gm In 37.5 Gm Tube) 15 gm PO ONETIME PRN PRN Reason: Hypoglycemia Dextrose/Water (50% Dextrose In Water 50 Ml Syringe) 50 ml IV ONETIME PRN PRN Reason: Hypoglycemia Docusate Sodium (Docusate Sodium 100 Mg Cap) 100 mg PO BID [facility] Last Admin: 05/13/21 08:50 Dose: 100 mg Documented by: Doxycycline Hyclate (Doxycycline 100 Mg Cap) 100 mg PO Q12H [facility] Enoxaparin Sodium (Enoxaparin 40 Mg/0.4 Ml Syringe) 40 mg SUBCUT BEDTIME [facility] Last Admin: 05/12/21 21:32 Dose: 40 mg Documented by: Hydroxyzine HCl (Hydroxyzine Hcl 25 Mg Tab) 25 mg PO DAILY [facility] Last Admin: 05/13/21 08:50 Dose: 25 mg Documented by: Insulin Human Lispro (Insulin Lispro 100 Unit/Ml 3 Ml Kwikpen) 0 unit SUBCUT QIDACANDBED [facility]; Protocol Last Admin: 05/13/21 07:29 Dose: Not Given Documented by: Insulin Human NPH (Insulin Isophane Nph, Human 100 Units/Ml 3 Ml Vial) 33 unit SQ DAILY [facility] Last Admin: 05/13/21 08:59 Dose: 33 unit Documented by: Insulin Human NPH (Insulin Isophane Nph, Human 100 Units/Ml 3 Ml Vial) 35 unit SQ BEDTIME [facility] Last Admin: 05/12/21 21:38 Dose: 35 unit Documented by: Lactobacillus Rhamnosus (Lactobacillus Rhamnosus Gg (Probiotic) Cap) 1 cap PO BID [facility] Last Admin: 05/13/21 08:50 Dose: 1 cap Documented by: Levothyroxine Sodium (Levothyroxine 100 Mcg Tab) 200 mcg PO DAILY@0730 [facility] Last Admin: 05/13/21 07:47 Dose: 200 mcg Documented by: Magnesium Hydroxide (Magnesium Hydroxide 400 Mg/5 Ml Susp 30 Ml Cup) 30 ml PO DAILY PRN PRN Reason: Constipation Ondansetron HCl (Ondansetron 4 Mg/2 Ml Sdv) 4 mg IV Q4H PRN PRN Reason: Nausea/Vomiting Oxycodone HCl (Oxycodone 5 Mg Tab) 5 mg PO Q4H PRN PRN Reason: Pain Last Admin: 05/13/21 04:59 Dose: 5 mg Documented by: Quetiapine Fumarate (Quetiapine 25 Mg Tab) 25 - 50 mg PO BEDTIME [facility] Last Admin: 05/12/21 21:33 Dose: 50 mg Documented by: Sodium Chloride (Sodium Chloride 0.9% 10 Ml Syringe) 10 ml FLUSH ASDIRECTED PRN PRN Reason: Keep Vein Open Zolpidem Tartrate (Zolpidem 5 Mg Tab) 10 mg PO BEDTIME [facility] Last Admin: 05/12/21 21:38 Dose: 10 mg Documented by: Discontinued Medications Albuterol (Albuterol 0.083% 2.5 Mg/3 Ml Neb Soln) 2.5 mg INH Q4H [facility] Last Admin: 05/09/21 20:15 Dose: 2.5 mg Documented by: Piperacillin Sod/Tazobactam (Sod 3.375 gm/ Sodium Chloride) 50 mls @ 100 mls/hr IV Q6H [facility] Last Admin: 05/10/21 05:54 Dose: 100 mls/hr Documented by: Vancomycin HCl 2 gm/ Sodium (Chloride) 500 mls @ 250 mls/hr IV Q12H [facility] Last Admin: 05/09/21 19:34 Dose: 250 mls/hr Documented by: Sodium Chloride (Normal Saline) 1,000 mls @ 125 mls/hr IV ASDIRECTED [facility] Last Admin: 05/10/21 06:38 Dose: 125 mls/hr Documented by: Piperacillin/Tazobactam/ (Dextrose 3.375 gm/ Premix) 50 mls @ 100 mls/hr IV Q6H [facility] Last Admin: 05/13/21 05:04 Dose: 100 mls/hr Documented by: Vancomycin HCl 2 gm/ Sodium (Chloride) 500 mls @ 250 mls/hr IV Q12H [facility] Last Admin: 05/13/21 07:48 Dose: 250 mls/hr Documented by: Polyethylene Glycol (Polyethylene Glycol 3350 Powder 17 Gm Packet) 17 gm PO DAILY PRN PRN Reason: Constipation Last Admin: 05/11/21 19:25 Dose: 17 gm Documented by: Potassium Chloride (Potassium Chloride 20 Meq Tab.Er) 40 meq PO ONETIME ONE Stop: 05/10/21 08:31 Last Admin: 05/10/21 09:54 Dose: 40 meq Documented by: Potassium Chloride (Potassium Chloride 20 Meq Tab.Er) 40 meq PO ONETIME ONE Stop: 05/10/21 17:01 Last Admin: 05/10/21 16:45 Dose: 40 meq Documented by: Sodium Chloride (Sodium Chloride 0.9% 10 Ml Syringe) 10 ml FLUSH ASDIRECTED PRN PRN Reason: Keep Vein Open Vancomycin HCl (Vancomycin 1 Gm Sdv) 1 gm IV .PHARMACY TO DOSE FERNANDO Stop: 05/10/21 08:35 - Exam Quality Assessment: No: Supplemental Oxygen General: Alert, Oriented, Cooperative, No Acute Distress Cardiovascular: Regular Rhythm GI/Abdominal Exam: Soft, No Distention Extremities: Pedal Edema (mild edema right lower leg around the ankle and lower maria ). No: Increased Warmth Skin: Warm, Dry. No: Rash Psy/Mental Status: Alert, Normal Affect - Patient Data Lab Results Last 24 hrs: Laboratory Results - last 24 hr 05/12/21 05/12/21 05/12/21 Range/Units 11:29 16:27 20:47 POC Glucose 180 H 146 H 208 H (74-106) mg/dL 05/13/21 Range/Units 07:20 POC Glucose 82 (74-106) mg/dL Result Diagrams: 05/11/21 05:22 05/11/21 05:22 [facility] Results Last 24 hrs: Microbiology 05/09/21 16:45 Aerobic Blood Culture - Preliminary Blood - Arm, Right NO GROWTH AFTER 3 DAYS Anaerobic Blood Culture - Preliminary NO GROWTH AFTER 3 DAYS 05/09/21 16:50 Aerobic Blood Culture - Preliminary Blood - Arm, Right NO GROWTH AFTER 3 DAYS Anaerobic Blood Culture - Preliminary NO GROWTH AFTER 3 DAYS Sepsis Event Note - Evaluation Sepsis Screening Result: No Definite Risk - Focused Exam Vital Signs: Vital Signs Temp Pulse Resp BP Pulse Ox 05/13/21 07:26 35.8 C L 80 18 113/56 L 90 L 05/13/21 03:00 35.5 C L 88 16 113/40 L 90 L 05/12/21 22:20 36.4 C 96 16 126/90 94 L - Problem List Review Problem List Initiated/Reviewed/Updated: Yes - My Orders Last 24 Hours: My Active Orders 05/12/21 10:40 Brian Bandage [RC] ROUTINE Wound Care [RC] DAILY 05/12/21 12:30 Docusate Sodium [Colace] 100 mg PO BID Magnesium Hydroxide [Milk of Magnesia] 30 ml PO DAILY PRN bisacodyL [Dulcolax] 10 mg PO DAILY PRN 05/13/21 10:00 Doxycycline [Vibramycin] 100 mg PO Q12H - Plan Plan:: ASSESSMENT AND PLAN EXTENSIVE RIGHT LOWER EXTREMITY CELLULITIS AND EARLY SEPSIS-immunocompromised patient. Sepsis has resolved. Cellulitis continues to improve. Cultures negative. Transition to oral medications today -Follow-up cultures -Saline lock IV -Discontinue IV antibiotics -Start doxycycline twice daily -Continue lower extremity compression with Brian wraps to help with edema (on in the morning, off at night) -Elevate leg as able -Outpatient physical therapy with lymphedema massage? TYPE 2 DIABETES MELLITUS-well controlled so far. -4 times daily glucometers -Continue outpatient NPH insulin 30 units subcu twice daily -Moderate dose sliding scale Humalog HISTORY OF MALIGNANT MELANOMA-currently receiving treatment. MAINTENANCE ISSUES -DVT prophylaxis; Lovenox 40 mg subcu daily -GI prophylaxis; not indicated -Nutrition; consistent carbohydrate diet DISPOSITION-anticipate discharge to home with home care after the hospital stay, possibly tomorrow if stable overnight Karthikeyan Malin MD
[2021-05-13] MEDS: Doxycycline 100 MG Cap PO SCH ×2 (10:39→21:31)
[2021-05-13] MEDS: Albuterol 0.083% 2.5 MG/3 ML Neb Soln INH PRN (11:59)
[2021-05-13] MEDS: Enoxaparin 40 MG/0.4 ML Syringe SUBCUT SCH (21:29)
[2021-05-13] MEDS: Zolpidem 5 MG Tab PO SCH (21:37)
[2021-05-13] MEDS: QUEtiapine 25 MG Tab PO SCH (21:38)
[2021-05-14] MEDS: Levothyroxine 100 MCG Tab PO SCH (07:18)
[2021-05-14] MEDS: hydrOXYzine HCl 25 MG Tab PO SCH (08:50)
[2021-05-14] MEDS: Docusate Sodium 100 MG Cap PO SCH ×2 (08:50→21:14)
[2021-05-14] MEDS: Lactobacillus Rhamnosus GG (Probiotic) Cap PO SCH ×2 (08:50→21:14)
[2021-05-14] MEDS: Insulin Lispro 100 Unit/ML 3 ML KwikPen SUBCUT SCH ×4 (08:51→21:14)
[2021-05-14] MEDS: Doxycycline 100 MG Cap PO SCH ×2 (08:52→09:27)
[2021-05-14] MEDS: Insulin Isophane NPH, Human 100 Units/ML 3 ML Vial SQ SCH ×2 (10:35→21:15)
--- NOTE | 2021-05-14 10:42 | PCM.PN ---
- General Info Date of Service: 05/14/21 Subjective Update: No acute events overnight. No significant change in the pain of her right leg. She does feel like the leg is more red and more swollen today after antibiotic c hange yesterday. No fevers. No shortness of breath. Functional Status: Reports: Pain Controlled, Tolerating Diet - Review of Systems General: Denies: Fever Cardiovascular: Reports: Edema Skin: Reports: Rash - Patient Data Vitals - Most Recent: Last Vital Signs Temp 36.0 C L 05/14/21 07:00 Pulse 83 05/14/21 07:00 Resp 16 05/14/21 07:00 BP 111/45 L 05/14/21 07:00 Pulse Ox 92 L 05/14/21 07:00 Weight - Most Recent: 146.5 kg I&O - Last 24 Hours: Intake & Output 05/13/21 05/14/21 05/14/21 22:59 06:59 14:59 Output Total 700 500 Balance -700 -500 Lab Results Last 24 Hours: Laboratory Results - last 24 hr 05/13/21 05/13/21 05/13/21 Range/Units 11:33 16:27 20:57 POC Glucose 121 H 155 H 211 H (74-106) mg/dL 05/14/21 Range/Units 07:39 POC Glucose 91 (74-106) mg/dL [facility] Results Last 24 Hours: Microbiology 05/09/21 16:50 Aerobic Blood Culture - Preliminary Blood - Arm, Right NO GROWTH AFTER 4 DAYS Anaerobic Blood Culture - Preliminary NO GROWTH AFTER 4 DAYS 05/09/21 16:45 Aerobic Blood Culture - Preliminary Blood - Arm, Right NO GROWTH AFTER 4 DAYS Anaerobic Blood Culture - Preliminary NO GROWTH AFTER 4 DAYS Med Orders - Current: Current Medications Acetaminophen (Acetaminophen 325 Mg Tab) 650 mg PO Q4H PRN PRN Reason: Pain (Mild 1-3)/fever Last Admin: 05/09/21 20:56 Dose: 650 mg Documented by: Albuterol (Albuterol 0.083% 2.5 Mg/3 Ml Neb Soln) 2.5 mg INH Q4H PRN PRN Reason: Shortness of Breath Last Admin: 05/13/21 11:59 Dose: 2.5 mg Documented by: Bisacodyl (Bisacodyl 5 Mg Tab) 10 mg PO DAILY PRN PRN Reason: Constipation Dextrose (Glucose Gel 15 Gm In 37.5 Gm Tube) 15 gm PO ONETIME PRN PRN Reason: Hypoglycemia Dextrose/Water (50% Dextrose In Water 50 Ml Syringe) 50 ml IV ONETIME PRN PRN Reason: Hypoglycemia Docusate Sodium (Docusate Sodium 100 Mg Cap) 100 mg PO BID [facility] Last Admin: 05/14/21 08:50 Dose: 100 mg Documented by: Doxycycline Hyclate (Doxycycline 100 Mg Cap) 100 mg PO Q12H [facility] Last Admin: 05/14/21 09:27 Dose: Not Given Documented by: Enoxaparin Sodium (Enoxaparin 40 Mg/0.4 Ml Syringe) 40 mg SUBCUT BEDTIME [facility] Last Admin: 05/13/21 21:29 Dose: 40 mg Documented by: Hydroxyzine HCl (Hydroxyzine Hcl 25 Mg Tab) 25 mg PO DAILY [facility] Last Admin: 05/14/21 08:50 Dose: 25 mg Documented by: Insulin Human Lispro (Insulin Lispro 100 Unit/Ml 3 Ml Kwikpen) 0 unit SUBCUT QIDACANDBED [facility]; Protocol Last Admin: 05/14/21 08:51 Dose: Not Given Documented by: Insulin Human NPH (Insulin Isophane Nph, Human 100 Units/Ml 3 Ml Vial) 33 unit SQ DAILY [facility] Last Admin: 05/14/21 10:35 Dose: 33 unit Documented by: Insulin Human NPH (Insulin Isophane Nph, Human 100 Units/Ml 3 Ml Vial) 35 unit SQ BEDTIME [facility] Last Admin: 05/13/21 21:30 Dose: 35 unit Documented by: Lactobacillus Rhamnosus (Lactobacillus Rhamnosus Gg (Probiotic) Cap) 1 cap PO BID [facility] Last Admin: 05/14/21 08:50 Dose: 1 cap Documented by: Levothyroxine Sodium (Levothyroxine 100 Mcg Tab) 200 mcg PO DAILY@0730 [facility] Last Admin: 05/14/21 07:18 Dose: 200 mcg Documented by: Magnesium Hydroxide (Magnesium Hydroxide 400 Mg/5 Ml Susp 30 Ml Cup) 30 ml PO DAILY PRN PRN Reason: Constipation Ondansetron HCl (Ondansetron 4 Mg/2 Ml Sdv) 4 mg IV Q4H PRN PRN Reason: Nausea/Vomiting Oxycodone HCl (Oxycodone 5 Mg Tab) 5 mg PO Q4H PRN PRN Reason: Pain Last Admin: 05/13/21 19:56 Dose: 5 mg Documented by: Quetiapine Fumarate (Quetiapine 25 Mg Tab) 25 - 50 mg PO BEDTIME [facility] Last Admin: 05/13/21 21:38 Dose: 50 mg Documented by: Sodium Chloride (Sodium Chloride 0.9% 10 Ml Syringe) 10 ml FLUSH ASDIRECTED PRN PRN Reason: Keep Vein Open Zolpidem Tartrate (Zolpidem 5 Mg Tab) 10 mg PO BEDTIME [facility] Last Admin: 05/13/21 21:37 Dose: 10 mg Documented by: Discontinued Medications Albuterol (Albuterol 0.083% 2.5 Mg/3 Ml Neb Soln) 2.5 mg INH Q4H [facility] Last Admin: 05/09/21 20:15 Dose: 2.5 mg Documented by: Piperacillin Sod/Tazobactam (Sod 3.375 gm/ Sodium Chloride) 50 mls @ 100 mls/hr IV Q6H [facility] Last Admin: 05/10/21 05:54 Dose: 100 mls/hr Documented by: Vancomycin HCl 2 gm/ Sodium (Chloride) 500 mls @ 250 mls/hr IV Q12H [facility] Last Admin: 05/09/21 19:34 Dose: 250 mls/hr Documented by: Sodium Chloride (Normal Saline) 1,000 mls @ 125 mls/hr IV ASDIRECTED [facility] Last Admin: 05/10/21 06:38 Dose: 125 mls/hr Documented by: Piperacillin/Tazobactam/ (Dextrose 3.375 gm/ Premix) 50 mls @ 100 mls/hr IV Q6H [facility] Last Admin: 05/13/21 05:04 Dose: 100 mls/hr Documented by: Vancomycin HCl 2 gm/ Sodium (Chloride) 500 mls @ 250 mls/hr IV Q12H [facility] Last Admin: 05/13/21 07:48 Dose: 250 mls/hr Documented by: Polyethylene Glycol (Polyethylene Glycol 3350 Powder 17 Gm Packet) 17 gm PO DAILY PRN PRN Reason: Constipation Last Admin: 05/11/21 19:25 Dose: 17 gm Documented by: Potassium Chloride (Potassium Chloride 20 Meq Tab.Er) 40 meq PO ONETIME ONE Stop: 05/10/21 08:31 Last Admin: 05/10/21 09:54 Dose: 40 meq Documented by: Potassium Chloride (Potassium Chloride 20 Meq Tab.Er) 40 meq PO ONETIME ONE Stop: 05/10/21 17:01 Last Admin: 05/10/21 16:45 Dose: 40 meq Documented by: Sodium Chloride (Sodium Chloride 0.9% 10 Ml Syringe) 10 ml FLUSH ASDIRECTED PRN PRN Reason: Keep Vein Open Vancomycin HCl (Vancomycin 1 Gm Sdv) 1 gm IV .PHARMACY TO DOSE FERNANDO Stop: 05/10/21 08:35 - Exam General: Alert, Oriented, Cooperative, No Acute Distress Lungs: Normal Respiratory Effort GI/Abdominal Exam: Soft, No Distention Extremities: Pedal Edema (right leg from mid maria distally ), Increased Warmth (right foot and right lower leg from mid maria distally ) Skin: Warm, Dry Psy/Mental Status: Alert, Normal Affect - Patient Data Lab Results Last 24 hrs: Laboratory Results - last 24 hr 05/13/21 05/13/21 05/13/21 Range/Units 11:33 16:27 20:57 POC Glucose 121 H 155 H 211 H (74-106) mg/dL 05/14/21 Range/Units 07:39 POC Glucose 91 (74-106) mg/dL Result Diagrams: 05/11/21 05:22 05/11/21 05:22 [facility] Results Last 24 hrs: Microbiology 05/09/21 16:50 Aerobic Blood Culture - Preliminary Blood - Arm, Right NO GROWTH AFTER 4 DAYS Anaerobic Blood Culture - Preliminary NO GROWTH AFTER 4 DAYS 05/09/21 16:45 Aerobic Blood Culture - Preliminary Blood - Arm, Right NO GROWTH AFTER 4 DAYS Anaerobic Blood Culture - Preliminary NO GROWTH AFTER 4 DAYS Sepsis Event Note - Evaluation Sepsis Screening Result: No Definite Risk - Focused Exam Vital Signs: Vital Signs Temp Pulse Resp BP Pulse Ox 05/14/21 07:00 36.0 C L 83 16 111/45 L 92 L 05/14/21 03:00 95 05/14/21 02:57 35.7 C L 72 12 121/91 H 86 L 05/13/21 22:46 36.8 C 88 18 130/63 91 L - Problem List Review Problem List Initiated/Reviewed/Updated: Yes - My Orders Last 24 Hours: My Active Orders 05/13/21 10:00 Doxycycline [Vibramycin] 100 mg PO Q12H 05/13/21 19:00 Communication Order [RC] BID 05/14/21 10:45 Sulfamethoxazole/Trimethoprim [Septra DS] 1 tab PO BID 05/15/21 05:00 BASIC METABOLIC PANEL,BMP [CHEM] Timed CBC W/O DIFF,HEMOGRAM [HEME] Timed (1) - Plan Plan:: ASSESSMENT AND PLAN EXTENSIVE RIGHT LOWER EXTREMITY CELLULITIS AND EARLY SEPSIS-immunocompromised patient. Sepsis has resolved. Cellulitis has been improving but she has increased redness, warmth and swelling of the right lower leg after transition to oral antibiotics yesterday. -Follow-up cultures -Saline lock IV -Discontinue doxycycline -Start TMP/SMX twice daily -Continue lower extremity compression with Brian wraps to help with edema (on in the morning, off at night) -Elevate leg as able -Outpatient physical therapy with lymphedema massage? TYPE 2 DIABETES MELLITUS-well controlled so far. -4 times daily glucometers -Continue outpatient NPH insulin 30 units subcu twice daily -Moderate dose sliding scale Humalog HISTORY OF MALIGNANT MELANOMA-currently receiving treatment. MAINTENANCE ISSUES -DVT prophylaxis; Lovenox 40 mg subcu daily -GI prophylaxis; not indicated -Nutrition; consistent carbohydrate diet DISPOSITION-anticipate discharge to home with home care after the hospital stay, possibly tomorrow if antibiotic change effective Karthikeyan Malin MD
[2021-05-14] MEDS: Sulfamethoxazole/Trimethoprim 800-160 MG Tab PO SCH ×2 (12:06→21:13)
[2021-05-14] MEDS: Enoxaparin 40 MG/0.4 ML Syringe SUBCUT SCH (21:14)
[2021-05-14] MEDS: Zolpidem 5 MG Tab PO SCH (21:20)
[2021-05-14] MEDS: QUEtiapine 25 MG Tab PO SCH (21:20)
[2021-05-15 07:16] VITALS: BP 107/35; PULSE 83
[2021-05-15] MEDS: Levothyroxine 100 MCG Tab PO SCH (07:46)
[2021-05-15] MEDS: Insulin Lispro 100 Unit/ML 3 ML KwikPen SUBCUT SCH ×2 (07:46→11:53)
[2021-05-15] MEDS: Docusate Sodium 100 MG Cap PO SCH (09:08)
[2021-05-15] MEDS: Sulfamethoxazole/Trimethoprim 800-160 MG Tab PO SCH (09:08)
[2021-05-15] MEDS: Lactobacillus Rhamnosus GG (Probiotic) Cap PO SCH (09:08)
[2021-05-15] MEDS: hydrOXYzine HCl 25 MG Tab PO SCH (09:08)
[2021-05-15] MEDS: Insulin Isophane NPH, Human 100 Units/ML 3 ML Vial SQ SCH (09:15)
--- NOTE | 2021-05-15 10:22 | PCM.DCSUM1 ---
Discharge Summary - Hospital Course Brief History: 55-year-old female with history of right lower extremity melanoma status post lymph node dissection and recurrent cellulitis of the right lower extremity who presented with increasing redness, pain and swelling of the right lower extremity. She was admitted for management of cellulitis with sepsis. Diagnosis: Stroke: No - Discharge Data Discharge Date: 05/15/21 Discharge Disposition: Home, W Home Health Agency 06 Condition: Good - Referral to Home Health Date of Face to Face Encounter: 05/15/21 Reason for Homebound Status: weakness after acute infection Primary Care Physician: Dimitri Barton MD Skilled Need: Nursing and PT - Discharge Diagnosis/Problem(s) (1) Cellulitis of right leg SNOMED Code(s): 593567235 ICD Code: L03.115 - CELLULITIS OF RIGHT LOWER LIMB Status: Acute (2) Sepsis SNOMED Code(s): 36088815 ICD Code: A41.9 - SEPSIS, UNSPECIFIED ORGANISM Status: Acute Qualifiers: Sepsis type: Streptococcus group B Sepsis acute organ dysfunction status: with acute organ dysfunction Severe sepsis acute organ dysfunction type: encephalopathy Severe sepsis shock status: without septic shock Qualified Code(s): A40.1 - Sepsis due to streptococcus, group B; R65.20 - Severe sepsis without septic shock; G93.41 - Metabolic encephalopathy (3) Lymphedema of right lower extremity SNOMED Code(s): 12512309392567101 ICD Code: I89.0 - LYMPHEDEMA, NOT ELSEWHERE CLASSIFIED Status: Acute (4) Diabetes mellitus type 2 in obese SNOMED Code(s): 09314803 ICD Code: E11.69 - TYPE 2 DIABETES MELLITUS WITH OTHER SPECIFIED COMPLIC ATION; E66.9 - OBESITY, UNSPECIFIED Status: Chronic Priority: Medium (5) Malignant melanoma of lower limb SNOMED Code(s): 374012310 ICD Code: C43.70 - MALIGNANT MELANOMA OF UNSPECIFIED LOWER LIMB, INCLUDING HIP Status: Chronic Priority: Medium (6) Morbid obesity with BMI of 50.0-59.9, adult SNOMED Code(s): 119059254, 71073577629917 ICD Code: E66.01 - MORBID (SEVERE) OBESITY DUE TO EXCESS CALORIES; Z68.43 - BODY MASS INDEX [BMI] 50.0-59.9, ADULT Status: Chronic - Patient Summary/Data Hospital Course: Candi presented to the emergency room with increasing redness, pain and swelling of the right lower extremity. She has a history of cellulitis in this leg with the most recent episode about 2 months ago. She has had a previous lymph node dissection of the right groin. Work-up in the emergency room suggested extensive cellulitis of the right leg as well as evidence for early sepsis. She was started on broad-spectrum antibiotics after cultures were obtained. She received aggressive IV fluids. She was admitted to the hospital for further management. By the morning after admission we saw a fair amount of improvement in the redness, warmth and swelling of the right lower leg. Broad- spectrum antibiotics were continued and we saw further improvement over the next couple of days. We did elect to wrap the legs to help with chronic lymphedema from the previous lymph node dissection. After cultures were negative and we saw Sledge improvement we did try to transition her to oral medications with doxycycline. Unfortunately we saw an increase in the swelling, redness and warmth so doxycycline was discontinued in favor of Bactrim. After this transition we saw improvement in the redness, warmth and swelling again. Her white count has been normal since a couple of days after admission. She has not had any fevers. With the improvement on Bactrim I think she is safe for outpatient management. She has normal kidney function so this should be a safe option for her antibiotic therapy. She will be on antibiotics for several more days after hospital discharge and will have early follow-up. She was interested in home care and this will be set up at the time of hospital discharge. Her diabetes has been well controlled. - Patient Instructions Diet: Diabetic Diet Activity: As Tolerated Showering/Bathing: May Shower Notify Provider of: Fever, Increased Pain Other/Special Instructions: 1. Take Bactrim DS 1 tab twice daily for ten doses. 2. Continue your usual home meds as previously prescribed. 3. Follow up with Dr Barton as scheduled. 4. Continue your leg wraps for the right leg daily. Put them on in the morning and you may take them off at bedtime. - Discharge Plan *PRESCRIPTION DRUG MONITORING PROGRAM REVIEWED*: Not Applicable *COPY OF PRESCRIPTION DRUG MONITORING REPORT IN PATIENT BRENNA: Not Applicable Prescriptions/Med Rec: Sulfamethoxazole/Trimethoprim [Bactrim Ds Tablet] 1 each PO BID #10 tablet Home Medications: Home Meds Levothyroxine Sodium 200 mcg PO DAILY 06/15/14 [History] Pembrolizumab [Keytruda] 1 injection IV ASDIRECTED 12/09/16 [History] Prochlorperazine Maleate [Compazine] 10 mg PO Q6H PRN 12/09/16 [History] Triamcinolone Acetonide [Kenalog 0.1% Crm] 1 applic TOP ASDIRECTED 01/09/18 [History] QUEtiapine Fumarate [Seroquel] 1 - 2 mg PO BEDTIME 12/11/20 [History] hydrOXYzine HCL [hydrOXYzine] 25 mg PO DAILY 12/11/20 [History] Insulin Lispro [Humalog] See Protocol SUBCUT QIDACANDBED 30 Days #1 pen 12/16/20 [Rx] Insulin NPH Human Isophane [Humulin N] 33 unit SQ DAILY 30 Days #1 vial 12/16/20 [Rx] Insulin NPH Human Isophane [Humulin N] 35 unit SQ BEDTIME 30 Days #1 vial 12/16/20 [Rx] Albuterol [Proventil Neb Soln] 3 ml INH Q4H PRN 12/24/20 [History] Citalopram [Citalopram HBr] 20 mg PO DAILY 05/09/21 [History] Zolpidem Tartrate 10 mg PO BEDTIME 05/09/21 [History] buPROPion [buPROPion XL] 150 mg PO DAILY 05/09/21 [History] Sulfamethoxazole/Trimethoprim [Bactrim Ds Tablet] 1 each PO BID #10 tablet 05/15/21 [Rx] Oxygen Therapy Mode: Room Air Patient Handouts: Cellulitis, Adult, [id number], Sulfamethoxazole; Trimethoprim, [id number] tablets Referrals: Dimitri Barton MD [Primary Care Provider] - 05/19/21 1:00 pm (Please arrive 15 minutes early to register for your appointments.) Heavenly Castellanos [Registered Dietitian] - 05/19/21 2:00 pm - Discharge Summary/Plan Comment DC Time >30 min.: No Total # of Minutes for Discharge Time: 25 - Patient Data Vitals - Most Recent: Last Vital Signs Temp 35.4 C L 05/15/21 07:00 Pulse 83 05/15/21 07:00 Resp 16 05/15/21 07:00 BP 107/35 L 05/15/21 07:00 Pulse Ox 93 L 05/15/21 07:00 Weight - Most Recent: 146.5 kg I&O - Last 24 hours: Intake & Output 05/14/21 05/15/21 05/15/21 22:59 06:59 14:59 Intake Total 1400 500 Output Total 600 1200 400 Balance 800 -1200 100 Lab Results - Last 24 hrs: Laboratory Results - last 24 hr 05/14/21 05/14/21 05/14/21 Range/Units 11:34 16:49 20:59 WBC (4.5-11.0) K/uL RBC (3.30-5.50) M/uL Hgb (12.0-15.0) g/dL Hct (36.0-48.0) % MCV (80-98) fL MCH (27-31) pg MCHC (32-36) % Plt Count (150-400) K/uL Sodium (140-148) mmol/L Potassium (3.6-5.2) mmol/L Chloride (100-108) mmol/L Carbon Dioxide (21-32) mmol/L Anion Gap (5.0-14.0) mmol/L BUN (7-18) mg/dL Creatinine (0.6-1.0) mg/dL Est Cr Clr Drug Dosing mL/min Estimated GFR (MDRD) (>60) Glucose (74-106) mg/dL POC Glucose 203 H 169 H 153 H (74-106) mg/dL Calcium (8.5-10.1) mg/dL 05/15/21 05/15/21 05/15/21 Range/Units 04:15 04:15 07:33 WBC 5.3 (4.5-11.0) K/uL RBC 4.67 (3.30-5.50) M/uL Hgb 11.5 L (12.0-15.0) g/dL Hct 38.0 (36.0-48.0) % MCV 81 (80-98) fL MCH 25 L (27-31) pg MCHC 30 L (32-36) % Plt Count 164 (150-400) K/uL Sodium 140 (140-148) mmol/L Potassium 3.9 (3.6-5.2) mmol/L Chloride 103 (100-108) mmol/L Carbon Dioxide 31 (21-32) mmol/L Anion Gap 6.3 (5.0-14.0) mmol/L BUN 14 (7-18) mg/dL Creatinine 0.8 (0.6-1.0) mg/dL Est Cr Clr Drug Dosing 70.66 mL/min Estimated GFR (MDRD) > 60 (>60) Glucose 94 (74-106) mg/dL POC Glucose 86 (74-106) mg/dL Calcium 8.4 L (8.5-10.1) mg/dL [facility]CKY Results - Last 24 hrs: Microbiology 05/09/21 16:45 Aerobic Blood Culture - Final Blood - Arm, Right NO GROWTH AFTER 5 DAYS Anaerobic Blood Culture - Final NO GROWTH AFTER 5 DAYS 05/09/21 16:50 Aerobic Blood Culture - Final Blood - Arm, Right NO GROWTH AFTER 5 DAYS Anaerobic Blood Culture - Final NO GROWTH AFTER 5 DAYS Med Orders - Current: Current Medications Acetaminophen (Acetaminophen 325 Mg Tab) 650 mg PO Q4H PRN PRN Reason: Pain (Mild 1-3)/fever Last Admin: 05/09/21 20:56 Dose: 650 mg Documented by: Albuterol (Albuterol 0.083% 2.5 Mg/3 Ml Neb Soln) 2.5 mg INH Q4H PRN PRN Reason: Shortness of Breath Last Admin: 05/13/21 11:59 Dose: 2.5 mg Documented by: Bisacodyl (Bisacodyl 5 Mg Tab) 10 mg PO DAILY PRN PRN Reason: Constipation Dextrose (Glucose Gel 15 Gm In 37.5 Gm Tube) 15 gm PO ONETIME PRN PRN Reason: Hypoglycemia Dextrose/Water (50% Dextrose In Water 50 Ml Syringe) 50 ml IV ONETIME PRN PRN Reason: Hypoglycemia Docusate Sodium (Docusate Sodium 100 Mg Cap) 100 mg PO BID [facility] Last Admin: 05/15/21 09:08 Dose: 100 mg Documented by: Enoxaparin Sodium (Enoxaparin 40 Mg/0.4 Ml Syringe) 40 mg SUBCUT BEDTIME [facility] Last Admin: 05/14/21 21:14 Dose: 40 mg Documented by: Hydroxyzine HCl (Hydroxyzine Hcl 25 Mg Tab) 25 mg PO DAILY [facility] Last Admin: 05/15/21 09:08 Dose: 25 mg Documented by: Insulin Human Lispro (Insulin Lispro 100 Unit/Ml 3 Ml Kwikpen) 0 unit SUBCUT QIDACANDBED [facility]; Protocol Last Admin: 05/15/21 07:46 Dose: Not Given Documented by: Insulin Human NPH (Insulin Isophane Nph, Human 100 Units/Ml 3 Ml Vial) 33 unit SQ DAILY [facility] Last Admin: 05/15/21 09:15 Dose: 33 unit Documented by: Insulin Human NPH (Insulin Isophane Nph, Human 100 Units/Ml 3 Ml Vial) 35 unit SQ BEDTIME [facility] Last Admin: 05/14/21 21:15 Dose: 35 unit Documented by: Lactobacillus Rhamnosus (Lactobacillus Rhamnosus Gg (Probiotic) Cap) 1 cap PO BID [facility] Last Admin: 05/15/21 09:08 Dose: 1 cap Documented by: Levothyroxine Sodium (Levothyroxine 100 Mcg Tab) 200 mcg PO DAILY@0730 [facility] Last Admin: 05/15/21 07:46 Dose: 200 mcg Documented by: Magnesium Hydroxide (Magnesium Hydroxide 400 Mg/5 Ml Susp 30 Ml Cup) 30 ml PO DAILY PRN PRN Reason: Constipation Ondansetron HCl (Ondansetron 4 Mg/2 Ml Sdv) 4 mg IV Q4H PRN PRN Reason: Nausea/Vomiting Oxycodone HCl (Oxycodone 5 Mg Tab) 5 mg PO Q4H PRN PRN Reason: Pain Last Admin: 05/13/21 19:56 Dose: 5 mg Documented by: Quetiapine Fumarate (Quetiapine 25 Mg Tab) 25 - 50 mg PO BEDTIME [facility] Last Admin: 05/14/21 21:20 Dose: 50 mg Documented by: Sodium Chloride (Sodium Chloride 0.9% 10 Ml Syringe) 10 ml FLUSH ASDIRECTED PRN PRN Reason: Keep Vein Open Trimethoprim/Sulfamethoxazole (Sulfamethoxazole/Trimethoprim 800-160 Mg Tab) 1 tab PO BID [facility] Last Admin: 05/15/21 09:08 Dose: 1 tab Documented by: Zolpidem Tartrate (Zolpidem 5 Mg Tab) 10 mg PO BEDTIME [facility] Last Admin: 05/14/21 21:20 Dose: 10 mg Documented by: Discontinued Medications Albuterol (Albuterol 0.083% 2.5 Mg/3 Ml Neb Soln) 2.5 mg INH Q4H [facility] Last Admin: 05/09/21 20:15 Dose: 2.5 mg Documented by: Doxycycline Hyclate (Doxycycline 100 Mg Cap) 100 mg PO Q12H [facility] Last Admin: 05/14/21 09:27 Dose: Not Given Documented by: Piperacillin Sod/Tazobactam (Sod 3.375 gm/ Sodium Chloride) 50 mls @ 100 mls/hr IV Q6H [facility] Last Admin: 05/10/21 05:54 Dose: 100 mls/hr Documented by: Vancomycin HCl 2 gm/ Sodium (Chloride) 500 mls @ 250 mls/hr IV Q12H [facility] Last Admin: 05/09/21 19:34 Dose: 250 mls/hr Documented by: Sodium Chloride (Normal Saline) 1,000 mls @ 125 mls/hr IV ASDIRECTED [facility] Last Admin: 05/10/21 06:38 Dose: 125 mls/hr Documented by: Piperacillin/Tazobactam/ (Dextrose 3.375 gm/ Premix) 50 mls @ 100 mls/hr IV Q6H [facility] Last Admin: 05/13/21 05:04 Dose: 100 mls/hr Documented by: Vancomycin HCl 2 gm/ Sodium (Chloride) 500 mls @ 250 mls/hr IV Q12H [facility] Last Admin: 05/13/21 07:48 Dose: 250 mls/hr Documented by: Polyethylene Glycol (Polyethylene Glycol 3350 Powder 17 Gm Packet) 17 gm PO DAILY PRN PRN Reason: Constipation Last Admin: 05/11/21 19:25 Dose: 17 gm Documented by: Potassium Chloride (Potassium Chloride 20 Meq Tab.Er) 40 meq PO ONETIME ONE Stop: 05/10/21 08:31 Last Admin: 05/10/21 09:54 Dose: 40 meq Documented by: Potassium Chloride (Potassium Chloride 20 Meq Tab.Er) 40 meq PO ONETIME ONE Stop: 05/10/21 17:01 Last Admin: 05/10/21 16:45 Dose: 40 meq Documented by: Sodium Chloride (Sodium Chloride 0.9% 10 Ml Syringe) 10 ml FLUSH ASDIRECTED PRN PRN Reason: Keep Vein Open Vancomycin HCl (Vancomycin 1 Gm Sdv) 1 gm IV .PHARMACY TO DOSE [facility] Stop: 05/10/21 08:35
== END 2021-05-15 12:36 | disposition home health service (06) | DRG 871 ==
LOC: JP.ED 15:24 → JP.MS 18:52
PROVIDERS: ADMIT Hospitalist; ATTEND Internal Medicine
DX: A40.1 Sepsis due to streptococcus, group B (principal); G93.41 Metabolic encephalopathy; L03.115 Cellulitis of right lower limb; Z68.43 Body mass index [BMI] 50.0-59.9, adult; R65.20 Severe sepsis without septic shock; H54.7 Unspecified visual loss; I89.0 Lymphedema, not elsewhere classified; C43.70 Malignant melanoma of unspecified lower limb, including hip; E66.01 Morbid (severe) obesity due to excess calories; E78.00 Pure hypercholesterolemia, unspecified; K59.09 Other constipation; K21.9 Gastro-esophageal reflux disease without esophagitis; M19.90 Unspecified osteoarthritis, unspecified site; F32.9 Major depressive disorder, single episode, unspecified; Z87.01 Personal history of pneumonia (recurrent); F41.9 Anxiety disorder, unspecified; Z85.820 Personal history of malignant melanoma of skin; Z85.850 Personal history of malignant neoplasm of thyroid; Z79.890 Hormone replacement therapy; Z79.4 Long term (current) use of insulin; Z79.899 Other long term (current) drug therapy; Z90.89 Acquired absence of other organs; E03.9 Hypothyroidism, unspecified; E11.9 Type 2 diabetes mellitus without complications
CPT/HCPCS: 36415; 80048; 80053; 80202; 82947; 83605; 83735; 85025; 85027; 87040; 94640; 99284; A9270-GY; J1650; J1815; J1815-GY; J2543; J3370; J7030; J7040

== ENCOUNTER 2021-07-03 15:38 | Emergency (ER) | payer MEDICARE ==
--- NOTE | 2021-07-03 16:32 | EDM.PDOC ---
ED HPI GENERAL MEDICAL PROBLEM - General Chief Complaint: Lower Extremity Injury/Pain Stated Complaint: LEG FLAIR UP Time Seen by Provider: 07/03/21 16:10 Source of Information: Reports: Patient, Old Records, RN History Limitations: Reports: No Limitations - History of Present Illness INITIAL COMMENTS - FREE TEXT/NARRATIVE: 55 yo female here with R leg redness. Has a pHx of cellulitis. Feels this is the same. Onset of sx's noticed by patient this afternoon. Some chills, no fever. She started Bactrim orally that she had around the house today. Has not communicated with her primary care provider. Has been hospitalized for cellulitis in the past. Has had one J [employer] J Covid vaccine to date. No antipyretics taken today. Had nausea and vomiting on Tuesday, was not seen. Slept most of the day yesterday and today. 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: Reports: Other (see below) (Bactrim DS one dose) Right Lower Leg Pain Score (Numeric/FACES): 6 - Related Data Allergies Allergy/AdvReac Type Severity Reaction Status Date / Time No Known Allergies Allergy Verified 07/03/21 16:11 Home Meds: Home Meds Levothyroxine Sodium 200 mcg PO DAILY 06/15/14 [History] Pembrolizumab [Keytruda] 1 injection IV ASDIRECTED 12/09/16 [History] Prochlorperazine Maleate [Compazine] 10 mg PO Q6H PRN 12/09/16 [History] Triamcinolone Acetonide [Kenalog 0.1% Crm] 1 applic TOP ASDIRECTED 01/09/18 [History] QUEtiapine Fumarate [Seroquel] 1 - 2 mg PO BEDTIME 12/11/20 [History] hydrOXYzine HCL [hydrOXYzine] 25 mg PO DAILY 12/11/20 [History] Insulin Lispro [Humalog] See Protocol SUBCUT QIDACANDBED 30 Days #1 pen 12/16/20 [Rx] Insulin NPH Human Isophane [Humulin N] 33 unit SQ DAILY 30 Days #1 vial 12/16/20 [Rx] Insulin NPH Human Isophane [Humulin N] 35 unit SQ BEDTIME 30 Days #1 vial 12/16/20 [Rx] Albuterol [Proventil Neb Soln] 3 ml INH Q4H PRN 12/24/20 [History] Citalopram [Citalopram HBr] 20 mg PO DAILY 05/09/21 [History] Zolpidem Tartrate 10 mg PO BEDTIME 05/09/21 [History] buPROPion [buPROPion XL] 150 mg PO DAILY 05/09/21 [History] Sulfamethoxazole/Trimethoprim [Bactrim Ds Tablet] 1 each PO BID #10 tablet 05/15/21 [Rx] Past Medical History HEENT History: Reports: Impaired Vision Other HEENT History: wears reading glasses Cardiovascular History: Reports: High Cholesterol Respiratory History: Reports: Pneumonia, Recurrent, Other (See Below) Other Respiratory History: sarcoidosis in 2002. Gastrointestinal History: Reports: Chronic Constipation, GERD Genitourinary History: Reports: None MANAGER OF COMPLIANCE History: Reports: Musculoskeletal History: Reports: Arthritis Neurological History: Reports: Migraines Psychiatric History: Reports: Anxiety, Depression Other Psychiatric History: claustrophobia Endocrine/Metabolic History: Reports: Diabetes, Type II, Hypothyroidism, Obesity/BMI 30+ Other Endocrine/Metabolic History: thyroid cancer Hematologic History: Reports: Blood Transfusion(s) Oncologic (Cancer) History: Reports: Malignant Melanoma, Thyroid, Other (See Below) Other Oncologic History: skin cancer-melanoma Dermatologic History: Reports: Cellulitis, Melanoma, Other (See Below) Other Dermatologic History: right lymph glands removed, lymphedema right leg - Infectious Disease History Infectious Disease History: Reports: Chicken Pox - Past Surgical History HEENT Surgical History: Reports: Tonsillectomy, Other (See Below) Other HEENT Surgeries/Procedures: "nose surgery i dont remember" Cardiovascular Surgical History: Reports: None Respiratory Surgical History: Reports: None GI Surgical History: Reports: Colonoscopy Female Surgical History: Reports: Breast Biopsy, Section, Tubal Ligation Endocrine Surgical History: Reports: None Neurological Surgical History: Reports: None Musculoskeletal Surgical History: Reports: None Oncologic Surgical History: Reports: Biopsy of Breast Dermatological Surgical History: Reports: Skin Biopsy Social & Family History - Family History Family Medical History: No Pertinent Family History - Tobacco Use Tobacco Use Status *Q: Never Tobacco User - Caffeine Use Caffeine Use: Reports: None - Recreational Drug Use Recreational Drug Use: No - Living Situation & Occupation Living situation: Reports: Single (lives with Son Juan and his family. has two adult Sons, 6 Grandchildren and multi dogs and cats) Occupation: Disabled Review of Systems - Review of Systems Review Of Systems: See Below Constitutional: Reports: Chills. Denies: Fever Eyes: Reports: No Symptoms Ears: Reports: No Symptoms Nose: Reports: No Symptoms Mouth/Throat: Reports: No Symptoms Respiratory: Reports: No Symptoms Cardiovascular: Reports: No Symptoms GI/Abdominal: Reports: Nausea, Vomiting (on Tuesday only) Genitourinary: Reports: No Symptoms Musculoskeletal: Reports: No Symptoms Skin: Reports: Erythema (R leg) Neurological: Reports: No Symptoms ED EXAM, GENERAL - Physical Exam Exam: See Below Exam Limited By: No Limitations General Appearance: Alert, WD/WN, No Apparent Distress, Obese Eye Exam: Bilateral Eye: Conjunctival Injection (with some mattering), PERRL Ears: Normal External Exam, Normal Canal, Hearing Grossly Normal Ear Exam: Bilateral Ear: Auricle Normal, Canal Normal Nose: Normal Inspection, No Blood Throat/Mouth: Normal Inspection, Normal Lips, Normal Oropharynx, Normal Voice, No Airway Compromise Head: Atraumatic, Normocephalic Neck: Normal Inspection Respiratory/Chest: No Respiratory Distress, Normal Breath Sounds, No Accessory Muscle Use, Crackles (rare, scattered) Cardiovascular: Regular Rate, Rhythm, No Edema, Tachycardia GI/Abdominal: Soft, Non-Tender, No Distention Extremities: Increased Warmth (R leg to the knee), Redness (R leg to the knee) Neurological: Alert, Oriented, CN II-XII Intact, Normal Cognition, No Motor/Sensory Deficits Psychiatric: Normal Affect, Normal Mood Skin Exam: Warm, Dry, Intact, Erythema (R leg only). No: Normal Color, No Rash Course - Vital Signs Text/Narrative:: Dr. Squires accepted @ [facility]([id number]), they will call back when a bed becomes available. Last Recorded V/S: Last Vital Signs Temp 38.7 C H 07/03/21 17:03 Pulse 121 H 07/03/21 17:36 Resp 22 H 07/03/21 16:25 BP 100/33 L 07/03/21 17:36 Pulse Ox 92 L 07/03/21 17:36 - Orders/Labs/Meds Orders: Active Orders 24 hr Category Date Time Status CULTURE BLOOD [BC] Stat Lab 07/03/21 17:00 Ordered CULTURE BLOOD [BC] Stat Lab 07/03/21 17:07 Received Sodium Chloride 0.9% [Normal Saline] 1,000 ml Med 07/03/21 17:45 Active IV ASDIRECTED Sodium Chloride 0.9% [Saline Flush] Med 07/03/21 16:24 Active 10 ml FLUSH ASDIRECTED PRN Saline Lock Insert [OM.PC] Routine Oth 07/03/21 16:24 Ordered Medication Orders Sodium Chloride (Normal Saline) 1,000 mls @ 500 mls/hr IV ASDIRECTED FERNANDO Last Admin: 07/03/21 17:47 Dose: 500 mls/hr Documented by: JAMI Sodium Chloride (Sodium Chloride 0.9% 10 Ml Syringe) 10 ml FLUSH ASDIRECTED PRN PRN Reason: Keep Vein Open Last Admin: 07/03/21 17:37 Dose: 10 ml Documented by: Admin: 07/03/21 16:53 Dose: 10 ml Documented by: PREILOR Labs: Laboratory Tests 07/03/21 07/03/21 07/03/21 Range/Units 16:41 16:48 16:55 WBC 12.5 H (4.5-11.0) K/uL RBC 5.42 (3.30-5.50) M/uL Hgb 13.0 (12.0-15.0) g/dL Hct 42.3 (36.0-48.0) % MCV 78 L (80-98) fL MCH 24 L (27-31) pg MCHC 31 L (32-36) % Plt Count 158 (150-400) K/uL Sodium (140-148) mmol/L Potassium (3.6-5.2) mmol/L Chloride (100-108) mmol/L Carbon Dioxide (21-32) mmol/L Anion Gap (5.0-14.0) mmol/L BUN (7-18) mg/dL Creatinine (0.6-1.0) mg/dL Est Cr Clr Drug Dosing mL/min Estimated GFR (MDRD) (>60) Glucose (74-106) mg/dL Lactic Acid (0.4-2.0) mmol/L Calcium (8.5-10.1) mg/dL C-Reactive Protein (0.0-0.3) mg/dL Urine Color Yellow (YELLOW) Urine Appearance Slightly cloudy A (CLEAR) Urine pH 5.5 (5.0-8.0) Ur Specific [place] 1.015 (1.008-1.030) Urine Protein Negative (NEGATIVE) mg/dL Urine Glucose (UA) Negative (NEGATIVE) mg/dL Urine Ketones Negative (NEGATIVE) mg/dL Urine Occult Blood Negative (NEGATIVE) Urine Nitrite Negative (NEGATIVE) Urine Bilirubin Negative (NEGATIVE) Urine Urobilinogen 0.2 (0.2-1.0) EU/dL Ur Leukocyte Esterase Negative (NEGATIVE) Urine RBC 0-5 (0-5) Urine WBC 0-5 (0-5) Ur Epithelial Cells Few Amorphous Sediment Not seen Urine Bacteria Few Urine Mucus Not seen Influenza Type A RNA Negative (NEGATIVE) RSV RNA (INAAT) Positive H (NEGATIVE) Influenza Type B RNA Negative (NEGATIVE) SARS-CoV-2 RNA (NATO) Negative (NEGATIVE) 07/03/21 07/03/21 Range/Units 16:55 16:55 WBC (4.5-11.0) K/uL RBC (3.30-5.50) M/uL Hgb (12.0-15.0) g/dL Hct (36.0-48.0) % MCV (80-98) fL MCH (27-31) pg MCHC (32-36) % Plt Count (150-400) K/uL Sodium 138 L (140-148) mmol/L Potassium 3.8 (3.6-5.2) mmol/L Chloride 99 L (100-108) mmol/L Carbon Dioxide 29 (21-32) mmol/L Anion Gap 13.8 (5.0-14.0) mmol/L BUN 17 (7-18) mg/dL Creatinine 1.0 (0.6-1.0) mg/dL Est Cr Clr Drug Dosing 54.24 mL/min Estimated GFR (MDRD) 57 L (>60) Glucose 131 H (74-106) mg/dL Lactic Acid 1.7 (0.4-2.0) mmol/L Calcium 8.8 (8.5-10.1) mg/dL C-Reactive Protein 24.32 H (0.0-0.3) mg/dL Urine Color (YELLOW) Urine Appearance (CLEAR) Urine pH (5.0-8.0) Ur Specific [place] (1.008-1.030) Urine Protein (NEGATIVE) mg/dL Urine Glucose (UA) (NEGATIVE) mg/dL Urine Ketones (NEGATIVE) mg/dL Urine Occult Blood (NEGATIVE) Urine Nitrite (NEGATIVE) Urine Bilirubin (NEGATIVE) Urine Urobilinogen (0.2-1.0) EU/dL Ur Leukocyte Esterase (NEGATIVE) Urine RBC (0-5) Urine WBC (0-5) Ur Epithelial Cells Amorphous Sediment Urine Bacteria Urine Mucus Influenza Type A RNA (NEGATIVE) RSV RNA (INAAT) (NEGATIVE) Influenza Type B RNA (NEGATIVE) SARS-CoV-2 RNA (NATO) (NEGATIVE) Meds: Medications Generic Name Dose Route Start Last Admin Trade Name Freq PRN Reason Stop Dose Admin Sodium Chloride 1,000 mls @ 500 mls/hr 07/03/21 17:45 07/03/21 17:47 Normal Saline IV 500 mls/hr ASDIRECTED FERNANDO Administration Sodium Chloride 10 ml 07/03/21 16:24 07/03/21 17:37 Sodium Chloride 0.9% 10 Ml Syringe FLUSH 10 ml ASDIRECTED PRN Administration Keep Vein Open Discontinued Medications Generic Name Dose Route Start Last Admin Trade Name Freq PRN Reason Stop Dose Admin Acetaminophen 1,000 mg 07/03/21 16:58 07/03/21 17:03 Acetaminophen 500 Mg Tab PO 07/03/21 16:59 1,000 mg ONETIME ONE Administration Ceftriaxone Sodium 1 gm/ 50 mls @ 100 mls/hr 07/03/21 17:05 07/03/21 17:34 Sodium Chloride IV 07/03/21 17:34 100 mls/hr ONETIME ONE Administration Clindamycin Phosphate 900 mg/ 106 mls @ 200 mls/hr 07/03/21 17:19 07/03/21 18:05 Sodium Chloride IV 07/03/21 17:50 200 mls/hr ONETIME ONE Administration Lactated Ringer's 1,000 mls @ 500 mls/hr 07/03/21 17:45 Ringers, Lactated IV ASDIRECTED FERNANDO Departure - Departure Time of Disposition: 18:40 Disposition: DC/Tfer to [facility] Condition: Fair Clinical Impression: Cellulitis of right leg, RSV bronchiolitis Bilateral conjunctivitis Qualifiers: Conjunctivitis type: acute Acute conjunctivitis type: unspecified Qualified Code(s): H10.33 - Unspecified acute conjunctivitis, bilateral - Discharge Information *PRESCRIPTION DRUG MONITORING PROGRAM REVIEWED*: Not Applicable *COPY OF PRESCRIPTION DRUG MONITORING REPORT IN PATIENT BRENNA: Not Applicable Referrals: Dimitri Barton MD [Primary Care Provider] - Forms: ED Department Discharge Sepsis Event Note (ED) - Evaluation Sepsis Screening Result: No Definite Risk - Focused Exam Vital Signs: Vital Signs Temp Temp Pulse Resp BP Pulse Ox 07/03/21 17:36 121 H 100/33 L 92 L 07/03/21 17:03 38.7 C H 07/03/21 16:25 38.7 C H 126 H 22 H 142/46 H 93 L 07/03/21 16:07 127 H 18 149/76 H 92 L 07/03/21 15:56 36.7 C 127 H 18 149/76 H 92 L - My Orders Last 24 Hours: My Active Orders 07/03/21 16:24 Sodium Chloride 0.9% [Saline Flush] 10 ml FLUSH ASDIRECTED PRN Saline Lock Insert [OM.PC] Routine 07/03/21 17:00 CULTURE BLOOD [BC] Stat 07/03/21 17:07 CULTURE BLOOD [BC] Stat 07/03/21 17:45 Sodium Chloride 0.9% [Normal Saline] 1,000 ml IV ASDIRECTED - Assessment/Plan Last 24 Hours: My Active Orders 07/03/21 16:24 Sodium Chloride 0.9% [Saline Flush] 10 ml FLUSH ASDIRECTED PRN Saline Lock Insert [OM.PC] Routine 07/03/21 17:00 CULTURE BLOOD [BC] Stat 07/03/21 17:07 CULTURE BLOOD [BC] Stat 07/03/21 17:45 Sodium Chloride 0.9% [Normal Saline] 1,000 ml IV ASDIRECTED
[2021-07-03] MEDS: Sodium Chloride 0.9% 10 ML Syringe FLUSH PRN ×2 (16:53→17:37)
[2021-07-03] MEDS ORDERED: Acetaminophen 500 MG Tab PO ONE (16:58)
[2021-07-03] MEDS ORDERED: cefTRIAXone 1 GM in Sodium Chloride 0.9% 50 ML IV ONE (17:05)
[2021-07-03] MEDS ORDERED: Clindamycin Phosphate 900 MG in Sodium Chloride 0.9% 100 ML IV ONE (17:19)
[2021-07-03 17:30] LABS: CORONAVIRUS COVID-19 NAA NEGATIVE (NEGATIVE)
[2021-07-03] MEDS ORDERED: Lactated Ringers 1,000 ML IV SCH (17:45)
[2021-07-03] MEDS ORDERED: Sodium Chloride 0.9% 1,000 ML IV SCH (17:45)
[2021-07-03] MEDS ORDERED: HYDROmorphone 1 MG/ML Syringe IVPUSH ONE (20:17)
[2021-07-03 21:05] VITALS: BP 131/112; PULSE 123
[2021-07-03] MEDS ORDERED: Ibuprofen 600 MG Tab PO ONE (21:11)
[2021-07-03] MEDS ORDERED: LORazepam 2 MG/ML SDV IVPUSH ONE (21:32)
== END 2021-07-03 21:53 ==
LOC: JP.ED 15:38
DX: L03.115 Cellulitis of right lower limb (principal); J21.0 Acute bronchiolitis due to respiratory syncytial virus; H10.33 Unspecified acute conjunctivitis, bilateral; E78.00 Pure hypercholesterolemia, unspecified; K21.9 Gastro-esophageal reflux disease without esophagitis; E11.9 Type 2 diabetes mellitus without complications; E03.9 Hypothyroidism, unspecified; E66.9 Obesity, unspecified; Z68.43 Body mass index [BMI] 50.0-59.9, adult; Z79.4 Long term (current) use of insulin; Z79.899 Other long term (current) drug therapy; Z20.822 Contact with and (suspected) exposure to COVID-19
CPT/HCPCS: 0241U; 36415; 80048; 81001; 83605; 85027; 86140; 87040; 96365; 96367; 96375; 99284; A9270; J0696; J1170; J2060; J3490; J7030

== ENCOUNTER 2021-10-09 06:57 | Day surgery (SDC) | payer MEDICARE ==
[~2021-10-09 06:57] MED LIST changes: -Acetaminophen/HYDROcodone 325-5 MG Tab PO PRN; -Dextrose 5%-Lactated Ringers 1,000 ML IV SCH; -Midazolam 1 MG/ML 2 ML SDV ONE; -Propofol 200 MG/20 ML SDV ONE; -ceFAZolin 2 GM in Premix Bag 1 BAG IV ONE; -fentaNYL 100 MCG/2 ML SDV ONE
[2021-10-09] MEDS ORDERED: fentaNYL 100 MCG/2 ML SDV ONE (08:12)
[2021-10-09] MEDS ORDERED: Propofol 200 MG/20 ML SDV ONE ×2 (08:12→09:20)
[2021-10-09] MEDS ORDERED: Midazolam 1 MG/ML 2 ML SDV ONE (08:12)
[2021-10-09] MEDS ORDERED: Sodium Chloride 0.9% 1,000 ML IV SCH (08:15)
[2021-10-09] MEDS ORDERED: ceFAZolin 2 GM in Premix Bag 1 BAG IV ONE (09:00)
[2021-10-09 11:23] VITALS: BP 119/68; PULSE 84
== END 2021-10-09 11:26 | disposition home or self-care (01) ==
LOC: JP.SDS 06:57
PROVIDERS: ATTEND Surgery
DX: I87.8 Other specified disorders of veins (principal); E66.9 Obesity, unspecified; E11.9 Type 2 diabetes mellitus without complications
CPT/HCPCS: 36561; 71045; 77001; C1788; C1894; J0690; J1642; J2250; J2704; J3010; J3490; J7030

== ENCOUNTER 2021-12-03 17:47 | Emergency (ER) | payer MEDICARE, OTHER ==
[2021-12-03] MEDS ORDERED: Sodium Chloride 0.9% 10 ML Syringe FLUSH PRN (18:28)
[2021-12-03] MEDS ORDERED: Sodium Chloride 0.9% 1,000 ML IV ONE (18:30)
[2021-12-03 19:36] LABS: CORONAVIRUS COVID-19 NAA NEGATIVE (NEGATIVE)
[2021-12-03 21:11] VITALS: BP 124/39; PULSE 84
== END 2021-12-04 02:37 | disposition home or self-care (01) ==
LOC: JP.ED 17:47
DX: R40.0 Somnolence (principal); T82.524A Displacement of infusion catheter, initial encounter; D86.0 Sarcoidosis of lung; E89.0 Postprocedural hypothyroidism; E78.00 Pure hypercholesterolemia, unspecified; K21.9 Gastro-esophageal reflux disease without esophagitis; E66.01 Morbid (severe) obesity due to excess calories; Z79.4 Long term (current) use of insulin; Z79.899 Other long term (current) drug therapy; Z20.822 Contact with and (suspected) exposure to COVID-19; Z68.43 Body mass index [BMI] 50.0-59.9, adult
CPT/HCPCS: 0241U; 36415; 70450; 71045; 80053; 80305; 80307; 81001; 82009; 82140; 82550; 83605; 83690; 83735; 84145; 84443; 84484; 85025; 87040; 87086; 93005; 93010; 96374; 99283; 99285; J1642; J1790; J3490; J7030

== ENCOUNTER 2022-02-17 14:53 | Emergency (ER) | payer MEDICARE ==
[2022-02-17 15:22] VITALS: BP 140/53; PULSE 88
[2022-02-17 16:04] LABS: ESTIMATED GFR 101 mL/min (>60)
== END 2022-02-17 20:48 | disposition home or self-care (01) ==
LOC: JP.ED 14:53
DX: F32.A Depression, unspecified (principal); E03.9 Hypothyroidism, unspecified; E11.9 Type 2 diabetes mellitus without complications; K21.9 Gastro-esophageal reflux disease without esophagitis; E66.9 Obesity, unspecified; Z68.41 Body mass index [BMI] 40.0-44.9, adult; Z79.899 Other long term (current) drug therapy
CPT/HCPCS: 36415; 80053; 80305-QW; 84443; 85025; 99283; 99284

== ENCOUNTER 2022-07-06 16:52 | Emergency (ER) | payer SELFPAY ==
[2022-07-06] MEDS ORDERED: Sodium Chloride 0.9% 10 ML Syringe FLUSH PRN ×2 (18:01→18:12)
[2022-07-06] MEDS ORDERED: Adenosine 6 MG/2 ML SDV IVPUSH ONE (18:12)
[2022-07-06 18:48] LABS: ESTIMATED GFR 86 mL/min (>60)
[2022-07-06] MEDS ORDERED: Ibutilide 1 MG/10 ML Vial IVPUSH ONE (18:49)
[2022-07-06 19:02] LABS: TROPONIN I HIGH SENSITIVITY 5.4 pg/mL (<=60.3)
[2022-07-06] MEDS ORDERED: Metoprolol Tartrate 25 MG Tab PO STA (19:47)
[2022-07-06] MEDS ORDERED: Metoprolol Tartrate 25 MG Tab PO SCH (20:00)
[2022-07-06] MEDS ORDERED: Metoprolol Tartrate 25 MG Tab PO ONE (20:33)
[2022-07-06 21:04] VITALS: BP 132/68; PULSE 96
== END 2022-07-06 21:30 | disposition home or self-care (01) ==
LOC: JP.ED 16:52
DX: I48.92 Unspecified atrial flutter (principal); E11.9 Type 2 diabetes mellitus without complications; E66.9 Obesity, unspecified; Z68.43 Body mass index [BMI] 50.0-59.9, adult; Z79.899 Other long term (current) drug therapy
CPT/HCPCS: 36415; 80053; 83735; 84439; 84443; 84484; 85025; 93005; 96374; 96375; 99285; A9270; J0153; J1742; J3490

== ENCOUNTER 2023-03-29 18:21 | Emergency (ER) | payer MEDICARE ==
[2023-03-29 20:22] LABS: BASOPHILS ABSOLUTE AUTO 0.04 K/uL (0.00-0.10); BASOPHILS PERCENT AUTO 0.6 % (0.1-1.3); EOSINOPHILS ABSOLUTE AUTO 0.15 K/uL (0.00-0.40); EOSINOPHILS PERCENT AUTO 2.3 % (0.0-5.4); HEMATOCRIT 42.9 % (34.3-46.0); HEMOGLOBIN 13.5 g/dL (11.2-15.5); IMMATURE GRAN ABSOLUTE AUTO 0.05 K/uL (0.00-0.23); IMMATURE GRAN PERCENT AUTO 0.8 % (0.0-0.7); LYMPHOCYTES ABSOLUTE AUTO 1.06 K/uL (0.8-3.3); LYMPHOCYTES PERCENT AUTO 16.5 % (11.4-47.7); MEAN CORPUSCULAR HEMOGLOBIN 26.5 pg (31.6-35.5); MEAN CORPUSCULAR HGB CONC 31.5 g/dL (31.6-35.5); MEAN CORPUSCULAR VOLUME 84.3 fL (81.4-99.0); MONOCYTES ABSOLUTE AUTO 0.44 K/uL (0.20-0.90); MONOCYTES PERCENT AUTO 6.8 % (3.3-12.6); NEUTROPHILS ABSOLUTE AUTO 4.69 K/uL (1.0-7.6); PLATELET COUNT,PLT 161 K/uL (130-375); RED BLOOD CELL COUNT 5.09 M/uL (3.77-5.24); WHITE BLOOD CELL COUNT,WBC 6.4 K/uL (3.2-11.0)
[2023-03-29] MEDS ORDERED: Sodium Chloride 0.9% 500 ML IV ONE (20:41)
[2023-03-29 20:50] LABS: ANION GAP 6.6 mmol/L (5.0-14.0); CALCIUM 9.1 mg/dL (8.5-10.1); CREATININE 0.8 mg/dL (0.6-1.0); EST CRCL DRUG DOSING (CG) 66.19 mL/min; POTASSIUM,K 4.6 mmol/L (3.6-5.2); TROPONIN I HIGH SENSITIVITY 6.7 pg/mL (<=60.3)
[2023-03-29] MEDS ORDERED: Metoprolol Tartrate 25 MG Tab PO ONE (21:29)
[2023-03-29] MEDS ORDERED: Metoprolol Tartrate 5 MG/5 ML SDV IVPUSH ONE (21:30)
[2023-03-29] MEDS ORDERED: Metoprolol Tartrate 5 MG in Sodium Chloride 0.9% 50 ML IV ONE (22:42)
[2023-03-29] MEDS ORDERED: Labetalol 100 MG/20 ML MDV IV ONE (22:43)
[2023-03-29] MEDS ORDERED: LORazepam 1 MG Tab PO ONE (23:08)
[2023-03-30] MEDS ORDERED: Metoprolol Tartrate 25 MG Tab PO ONE (01:02)
[2023-03-30 01:42] LABS: APPEARANCE,URINE CLEAR (CLEAR); BILIRUBIN,URINE NEGATIVE (NEGATIVE); COLOR,URINE YELLOW (YELLOW); GLUCOSE,URINE NEGATIVE (NEGATIVE); KETONES,URINE NEGATIVE (NEGATIVE); LEUKOCYTE ESTERASE,URINE NEGATIVE (NEGATIVE); NITRITE,URINE NEGATIVE (NEGATIVE); OCCULT BLOOD,URINE NEGATIVE (NEGATIVE); PROTEIN,URINE NEGATIVE (NEGATIVE); UROBILINOGEN,URINE 0.2 EU/dL (0.2-1.0)
[2023-03-30 01:50] LABS: RBC,URINE 0-5 (0-5)
[2023-03-30 01:51] LABS: AMORPHOUS SEDIMENT,URINE MODERATE; BACTERIA,URINE FEW; EPITHELIAL CELLS,URINE MODERATE; MUCUS,URINE NOT SEEN; WBC,URINE 0-5 (0-5)
[2023-03-30] MEDS ORDERED: Metoprolol Tartrate 5 MG in Sodium Chloride 0.9% 50 ML IV ONE (02:57)
[2023-03-30 03:25] VITALS: PULSE 120
[2023-03-30 04:14] VITALS: BP 127/73
== END 2023-03-30 04:43 | disposition home or self-care (01) ==
LOC: JP.ED 18:21
DX: R00.0 Tachycardia, unspecified (principal); E78.00 Pure hypercholesterolemia, unspecified; E11.9 Type 2 diabetes mellitus without complications; E03.9 Hypothyroidism, unspecified; E66.9 Obesity, unspecified; Z79.4 Long term (current) use of insulin; Z79.84 Long term (current) use of oral hypoglycemic drugs; Z79.899 Other long term (current) drug therapy; Z68.43 Body mass index [BMI] 50.0-59.9, adult
CPT/HCPCS: 36415; 80048; 81001; 83605; 84484; 85025; 93005; 93010; 96361; 96365; 96376; 99283; 99285; A9270; J3490; J7040

== ENCOUNTER 2023-08-21 17:53 | Emergency (ER) | payer MEDICARE ==
[2023-08-21 18:17] VITALS: BP 159/67; PULSE 102
[2023-08-21] MEDS ORDERED: Codeine/guaiFENesin 10-100 MG/5 ML Syrup 5 ML Cup PO ONE (18:59)
[2023-08-21 19:14] LABS: BASOPHILS ABSOLUTE AUTO 0.05 K/uL (0.00-0.10); BASOPHILS PERCENT AUTO 0.8 % (0.1-1.3); EOSINOPHILS ABSOLUTE AUTO 0.19 K/uL (0.00-0.40); EOSINOPHILS PERCENT AUTO 3.2 % (0.0-5.4); HEMOGLOBIN 13.1 g/dL (11.2-15.5); IMMATURE GRAN ABSOLUTE AUTO 0.05 K/uL (0.00-0.23); IMMATURE GRAN PERCENT AUTO 0.8 % (0.0-0.7); LYMPHOCYTES ABSOLUTE AUTO 0.84 K/uL (0.8-3.3); LYMPHOCYTES PERCENT AUTO 14.1 % (11.4-47.7); MEAN CORPUSCULAR HGB CONC 30.5 g/dL (31.6-35.5); MEAN CORPUSCULAR VOLUME 85.5 fL (81.4-99.0); MONOCYTES ABSOLUTE AUTO 0.37 K/uL (0.20-0.90); MONOCYTES PERCENT AUTO 6.2 % (3.3-12.6); NEUTROPHILS ABSOLUTE AUTO 4.45 K/uL (1.0-7.6); NEUTROPHILS PERCENT AUTO 74.9 % (40.0-78.1); PLATELET COUNT,PLT 172 K/uL (130-375); RED BLOOD CELL COUNT 5.03 M/uL (3.77-5.24)
[2023-08-21 19:30] LABS: CORONAVIRUS COVID-19 NAA NEGATIVE (NEGATIVE); INFLUENZA A NAA NEGATIVE (NEGATIVE); INFLUENZA B NAA NEGATIVE (NEGATIVE); RESPIRATORY SYNCYTIAL VIR NAA NEGATIVE (NEGATIVE)
[2023-08-21 19:38] LABS: A/G RATIO 0.8 (1.2-2.2); ALANINE AMINOTRANSFERASE,ALT 29 U/L (12-78); ALBUMIN 3.3 g/dL (3.4-5.0); ALKALINE PHOSPHATASE 106 U/L (46-116); ASPARTATE AMNIOTRANSFERASE,AST 21 U/L (15-37); BILIRUBIN TOTAL 0.4 mg/dL (0.2-1.0); BLOOD UREA NITROGEN,BUN 11 mg/dL (7-18); CALCIUM 8.3 mg/dL (8.5-10.1); CARBON DIOXIDE,CO2 30 mmol/L (21-32); CHLORIDE,CL 100 mmol/L (100-108); CREATININE 0.7 mg/dL (0.6-1.0); EST CRCL DRUG DOSING (CG) 75.65 mL/min; ESTIMATED GFR 100 mL/min (>60); GLUCOSE RANDOM 218 mg/dL (74-106); POTASSIUM,K 3.5 mmol/L (3.6-5.2); PROTEIN TOTAL,TP 7.3 g/dL (6.4-8.2); SODIUM,NA 138 mmol/L (140-148); TROPONIN I HIGH SENSITIVITY 8.1 pg/mL (<=60.3)
[2023-08-21 19:40] LABS: ANION GAP 11.5 mmol/L (5.0-14.0)
== END 2023-08-21 20:31 | disposition home or self-care (01) ==
LOC: JP.ED 17:53
DX: J01.90 Acute sinusitis, unspecified (principal); E11.9 Type 2 diabetes mellitus without complications; E03.9 Hypothyroidism, unspecified; E66.9 Obesity, unspecified; Z68.43 Body mass index [BMI] 50.0-59.9, adult; Z20.822 Contact with and (suspected) exposure to COVID-19; Z79.899 Other long term (current) drug therapy; Z79.84 Long term (current) use of oral hypoglycemic drugs
CPT/HCPCS: 0241U; 36415; 71046; 80053; 84484; 85025; 85379; 99283; A9270

== ENCOUNTER 2023-11-17 10:50 | Emergency (ER) | payer MEDICARE ==
[2023-11-17 11:47] LABS: BASOPHILS ABSOLUTE AUTO 0.04 K/uL (0.00-0.10); BASOPHILS PERCENT AUTO 1.1 % (0.1-1.3); EOSINOPHILS ABSOLUTE AUTO 0.12 K/uL (0.00-0.40); EOSINOPHILS PERCENT AUTO 3.3 % (0.0-5.4); HEMATOCRIT 44.2 % (34.3-46.0); HEMOGLOBIN 13.8 g/dL (11.2-15.5); IMMATURE GRAN PERCENT AUTO 0.5 % (0.0-0.7); LYMPHOCYTES ABSOLUTE AUTO 0.92 K/uL (0.8-3.3); LYMPHOCYTES PERCENT AUTO 25.2 % (11.4-47.7); MEAN CORPUSCULAR HGB CONC 31.2 g/dL (31.6-35.5); MEAN CORPUSCULAR VOLUME 83.4 fL (81.4-99.0); MONOCYTES ABSOLUTE AUTO 0.26 K/uL (0.20-0.90); MONOCYTES PERCENT AUTO 7.1 % (3.3-12.6); NEUTROPHILS ABSOLUTE AUTO 2.29 K/uL (1.0-7.6); NEUTROPHILS PERCENT AUTO 62.8 % (40.0-78.1); PLATELET COUNT,PLT 146 K/uL (130-375); WHITE BLOOD CELL COUNT,WBC 3.7 K/uL (3.2-11.0)
[2023-11-17 11:54] LABS: IMMATURE GRAN ABSOLUTE AUTO 0.02 K/uL (0.00-0.23)
[2023-11-17] MEDS: Sodium Chloride 0.9% 1,000 ML IV ONE (11:55)
[2023-11-17 11:57] LABS: INR 0.9; PROTHROMBIN TIME 9.4 sec (9.2-10.6); PTT,PARTIAL THROMBOPLSTIN TIME 29.3 sec (21.8-27.3)
[2023-11-17 12:01] LABS: A/G RATIO 0.9 (1.2-2.2); ALANINE AMINOTRANSFERASE,ALT 23 U/L (12-78); ALBUMIN 3.4 g/dL (3.4-5.0); ALKALINE PHOSPHATASE 110 U/L (46-116); ASPARTATE AMNIOTRANSFERASE,AST 15 U/L (15-37); BILIRUBIN TOTAL 0.5 mg/dL (0.2-1.0); BLOOD UREA NITROGEN,BUN 14 mg/dL (7-18); CALCIUM 9.1 mg/dL (8.5-10.1); CARBON DIOXIDE,CO2 31 mmol/L (21-32); CHLORIDE,CL 98 mmol/L (100-108); CREATININE 0.9 mg/dL (0.6-1.0); EST CRCL DRUG DOSING (CG) 58.84 mL/min; ESTIMATED GFR 74 mL/min (>60); GLUCOSE RANDOM 333 mg/dL (74-106); MAGNESIUM 1.9 mg/dL (1.8-2.4); POTASSIUM,K 4.6 mmol/L (3.6-5.2); PROTEIN TOTAL,TP 7.3 g/dL (6.4-8.2); SODIUM,NA 138 mmol/L (140-148); TROPONIN I HIGH SENSITIVITY 6.6 pg/mL (<=60.3)
[2023-11-17 12:02] LABS: ANION GAP 13.6 mmol/L (5.0-14.0)
[2023-11-17 14:37] VITALS: BP 148/66; PULSE 131
== END 2023-11-17 15:01 | disposition home or self-care (01) ==
LOC: JP.ED 10:50
DX: I47.9 Paroxysmal tachycardia, unspecified (principal); R00.2 Palpitations; C43.70 Malignant melanoma of unspecified lower limb, including hip; C73 Malignant neoplasm of thyroid gland; Z51.11 Encounter for antineoplastic chemotherapy; E66.9 Obesity, unspecified; E11.9 Type 2 diabetes mellitus without complications; E03.9 Hypothyroidism, unspecified; Z79.84 Long term (current) use of oral hypoglycemic drugs; Z79.4 Long term (current) use of insulin; Z79.899 Other long term (current) drug therapy; Z87.891 Personal history of nicotine dependence; Z68.43 Body mass index [BMI] 50.0-59.9, adult
CPT/HCPCS: 36415; 80053; 83735; 84484; 85025; 85610; 85730; 93005; 93010; 96360; 99285; J7030

== ENCOUNTER 2024-03-29 08:39 | Day surgery (SDC) | payer MEDICARE ==
[2024-03-29] MEDS: Sodium Chloride 0.9% 10 ML Syringe FLUSH PRN (09:36)
[2024-03-29] MEDS ORDERED: Midazolam 1 MG/ML 2 ML SDV ONE (09:54)
[2024-03-29 10:54] VITALS: BP 149/71; PULSE 84
== END 2024-03-29 11:05 | disposition home or self-care (01) ==
LOC: JP.SDS 08:39
PROVIDERS: ATTEND Ophthalmology
DX: E11.36 Type 2 diabetes mellitus with diabetic cataract (principal); H25.12 Age-related nuclear cataract, left eye
CPT/HCPCS: J2250; J3490; V2632

== ENCOUNTER 2024-04-12 08:00 | Day surgery (SDC) | payer MEDICARE ==
[2024-04-12] MEDS ORDERED: Midazolam 1 MG/ML 2 ML SDV ONE (08:32)
[2024-04-12] MEDS: Sodium Chloride 0.9% 10 ML Syringe FLUSH PRN (08:39)
[2024-04-12 09:31] VITALS: BP 123/66; PULSE 88
== END 2024-04-12 09:34 | disposition home or self-care (01) ==
LOC: JP.SDS 08:00
PROVIDERS: ATTEND Ophthalmology
DX: E11.36 Type 2 diabetes mellitus with diabetic cataract (principal); H25.11 Age-related nuclear cataract, right eye
CPT/HCPCS: 66984; J2250; J3490; V2632